=== PATIENT | female | born 1960 | race Caucasian/White ===

== ENCOUNTER 2018-10-01 14:12 | Emergency (ER) | payer OTHER ==
--- NOTE | 2018-10-01 15:21 | ER ---
Nurse's Notes [facility] Name: Inessa Altman Age: 58 yrs Sex: Female : 1960 Arrival Date: 10/01/2018 Time: 14:16 Bed 19 Private MD: Diagnosis: Chronic obstructive pulmonary disease, unspecified Presentation: 10/01 14:50 Presenting complaint: Patient states: seen by on Wednesday. Diagnosed with dm5 pneumonia. didn't take antibiotics because she lost z-pack. Pt states she has been shaky. pt took left over cefindir. Told to take Mucinex DM. Pt feels "speedy" and it can't stop. Pt also states she hasn't taken her psych meds during the day for about a week. Transition of care: patient was not received from another setting of care. Onset of symptoms was September 26, 2018. 14:50 Method Of Arrival: Ambulatory dm5 14:50 Acuity: MINGO 4 dm5 15:50 Risk Assessment: Do you want to hurt yourself or someone else? Patient reports no tw2 desire to harm self or others. Initial Sepsis Screen: Does the patient meet any 2 criteria? No. Patient's initial sepsis screen is negative. Does the patient have a suspected source of infection? No. Patient's initial sepsis screen is negative. Care prior to arrival: None. Historical: - Allergies: 14:53 Antihistamine; dm5 - PMHx: 14:53 Bipolar disorder; Depression; paranoid; Anxiety; dm5 - Immunization history:: Adult Immunizations. - Social history:: Smoking status: Patient uses tobacco products, recently stopped smoking. - Ebola Screening: : Patient denies travel to an Ebola-affected area in the 21 days before illness onset. Screenin:25 Abuse screen: Denies threats or abuse. Nutritional screening: No deficits noted. em Tuberculosis screening: No symptoms or risk factors identified. Fall Risk None identified. Assessment: 15:48 General: Appears in no apparent distress. comfortable, Behavior is calm, cooperative, em lost antibiotic rx, also reports shaking after taking Mucinex . Pain: Denies pain. Neuro: Level of Consciousness is awake, alert, obeys commands, Oriented to person, place, time, situation. Cardiovascular: Denies chest pain, palpitations, Capillary refill < 3 seconds Patient's skin is warm and dry. Respiratory: Airway is patent Respiratory effort is even, unlabored, Respiratory pattern is regular, symmetrical, Breath sounds are clear bilaterally. GI: Abdomen is flat. Derm: Skin is intact, is healthy with good turgor, Skin is pink, warm \\T\\ dry. Musculoskeletal: Capillary refill < 3 seconds, Range of motion: intact in all extremities. 15:50 Reassessment: I agree with above assessment by GABBY Vasquez. tw2 Vital Signs: 14:53 BP 142 / 95; Pulse 114; Resp 20; Temp 97.4; Pulse Ox 95% on R/A; Weight 61.69 kg (R); dm5 Height 5 ft. 5 in. (165.10 cm); Pain 0/10; 15:25 BP 124 / 96; Pulse 105; Resp 20; Pulse Ox 95% on R/A; em 14:53 Body Mass Index 22.63 (61.69 kg, 165.10 cm) dm5 ED Course: 14:16 Patient arrived in ED. mr 14:52 Triage completed. dm5 14:55 Arm band placed on left wrist. Patient placed in an exam room. dm5 14:59 Carolyn Hightower FNP-C is PHCP. snw 14:59 Sabino Silverio MD is Attending Physician. snw 15:20 Pedro Posey LVN is Primary Nurse. em 15:25 Patient has correct armband on for positive identification. Pulse ox on. NIBP on. em 15:48 No provider procedures requiring assistance completed. Patient did not have IV access em during this emergency room visit. Administered Medications: 15:39 Drug: Zithromax 500 mg Route: PO; em 15:50 Follow up: Response: Medication administered at discharge. em Outcome: 15:20 Discharge ordered by . snw 15:51 Patient left the ED. em 15:51 Discharged to home ambulatory. tw2 15:51 Condition: stable 15:51 Discharge instructions given to patient, Instructed on discharge instructions, follow up and referral plans. medication usage, Demonstrated understanding of instructions, follow-up care, medications, Prescriptions given X 1. Signatures: Marie Ambrose RN RN dm5 Carolyn Hightower FNP-C OTR TANKER TRUCK DRIVER-Csnw Traci Patel mr Pedro Posey LVN LVN em Castro, Beth, RN RN tw2 Corrections: (The following items were deleted from the chart) : 16:00 Reassessment: I agree with above assessment by GABBY Vasquez tw2 tw2
--- NOTE | 2018-10-01 15:22 | EDPHYS ---
Physician Documentation [facility] Name: Inessa Altman Age: 58 yrs Sex: Female : 1960 Arrival Date: 10/01/2018 Time: 14:16 Bed 19 Private MD: ED Physician Sabino Silverio HPI: 10/01 15:42 This 58 yrs old Female presents to ER via Ambulatory with complaints of snw Medication Reaction. 15:42 The patient presents with shakiness, restlessness. Onset: The symptoms/episode snw began/occurred suddenly, post taking Mucinex D. Associated signs and symptoms: Pertinent positives: light headed. Possible causes: Decongestants. At home the patient or guardian has treated the symptoms with nebulizer treatment. Severity of symptoms: At their worst the symptoms were moderate in the emergency department the symptoms are unchanged. The patient has experienced similar episodes in the past. The patient has been recently seen by a physician: the patient's primary care provider, Dr. Joon Quezada, N[facility]. Historical: - Allergies: 14:53 Antihistamine; dm5 - PMHx: 14:53 Bipolar disorder; Depression; paranoid; Anxiety; dm5 - Immunization history:: Adult Immunizations. - Social history:: Smoking status: Patient uses tobacco products, recently stopped smoking. - Ebola Screening: : Patient denies travel to an Ebola-affected area in the 21 days before illness onset. ROS: 15:40 Constitutional: Negative for fever, chills, and weight loss, Eyes: Negative for injury, snw pain, redness, and discharge, ENT: Negative for injury, pain, and discharge, Neck: Negative for injury, pain, and swelling, Cardiovascular: Negative for chest pain, palpitations, and edema, Respiratory: Negative for shortness of breath, wheezing, and pleuritic chest pain, + cough Abdomen/GI: Negative for abdominal pain, nausea, vomiting, diarrhea, and constipation, Back: Negative for injury and pain, : Negative for injury, bleeding, discharge, and swelling, MS/Extremity: Negative for injury and deformity, Skin: Negative for injury, rash, and discoloration, Neuro: Negative for headache, weakness, numbness, tingling, and seizure. 15:40 Psych: Positive for anxiety, feel like I'm on speed. Have not smoked cigarette since Wednesday. Pt with repeat appt with PCP (Joon Quezada NP) on Wednesday. Pt states she took Mucinex D and thinks she is having a reaction to that. Pt did not take Antibiotics prescribed because she lost the rx. Exam: 15:14 Constitutional: This is a well developed, well nourished patient who is awake, alert, snw and in no acute distress. Head/Face: Normocephalic, atraumatic. Eyes: Pupils equal round and reactive to light, extra-ocular motions intact. Lids and lashes normal. Conjunctiva and sclera are non-icteric and not injected. Cornea within normal limits. Periorbital areas with no swelling, redness, or edema. ENT: Nares patent. No nasal discharge, no septal abnormalities noted. Tympanic membranes are normal and external auditory canals are clear. Oropharynx with no redness, swelling, or masses, exudates, or evidence of obstruction, uvula midline. Mucous membranes moist. Neck: Trachea midline, no thyromegaly or masses palpated, and no cervical lymphadenopathy. Supple, full range of motion without nuchal rigidity, or vertebral point tenderness. No Meningismus. Chest/axilla: Normal chest wall appearance and motion. Nontender with no deformity. No lesions are appreciated. Cardiovascular: Regular rate and rhythm with a normal S1 and S2. No gallops, murmurs, or rubs. Normal PMI, no JVD. No pulse deficits. Respiratory: Lungs have equal breath sounds bilaterally, wheezes to auscultation and percussion. No rales, rhonchi noted. No increased work of breathing, no retractions or nasal flaring. Abdomen/GI: Soft, non-tender, with normal bowel sounds. No distension or tympany. No guarding or rebound. No evidence of tenderness throughout. Back: No spinal tenderness. No costovertebral tenderness. Full range of motion. Skin: Warm, dry with normal turgor. Normal color with no rashes, no lesions, and no evidence of cellulitis. MS/ Extremity: Pulses equal, no cyanosis. Neurovascular intact. Full, normal range of motion. Neuro: Awake and alert, GCS 15, oriented to person, place, time, and situation. Cranial nerves II-XII grossly intact. Motor strength 5/5 in all extremities. Sensory grossly intact. Cerebellar exam normal. Normal gait. 15:14 Psych: Behavior/mood is anxious, Affect is animated, Oriented to person, place, time. Vital Signs: 14:53 BP 142 / 95; Pulse 114; Resp 20; Temp 97.4; Pulse Ox 95% on R/A; Weight 61.69 kg (R); dm5 Height 5 ft. 5 in. (165.10 cm); Pain 0/10; 15:25 BP 124 / 96; Pulse 105; Resp 20; Pulse Ox 95% on R/A; em 14:53 Body Mass Index 22.63 (61.69 kg, 165.10 cm) dm5 MDM: 15:00 Patient medically screened. snw 15:21 Data reviewed: vital signs, nurses notes. Data interpreted: Pulse oximetry: on room air snw is 95 %. Interpretation: acceptable. Counseling: I had a detailed discussion with the patient and/or guardian regarding: the historical points, exam findings, and any diagnostic results supporting the discharge/admit diagnosis, the presence of at least one elevated blood pressure reading (>120/80) during this emergency department visit, the need for outpatient follow up, for definitive care, to return to the emergency department if symptoms worsen or persist or if there are any questions or concerns that arise at home. Response to treatment: pt less anxious and states she will never again take Mucinex.. Administered Medications: 15:39 Drug: Zithromax 500 mg Route: PO; em 15:50 Follow up: Response: Medication administered at discharge. em Disposition: 16:10 Co-signature as Attending Physician, Sabino Silverio MD. rn Disposition: 10/01/18 15:20 Discharged to Home. Impression: Chronic obstructive pulmonary disease, unspecified. - Condition is Stable. - Discharge Instructions: Chronic Bronchitis, Chronic Obstructive Pulmonary Disease, How to Use an Inhaler. - Prescriptions for Zithromax 500 mg Oral Tablet - take 1 tablet by ORAL route once daily for 5 days; 5 tablet. - Medication Reconciliation Form, Thank You Letter, Antibiotic Education, Prescription Opioid Use form. - Follow up: Private Physician; When: 2 - 3 days; Reason: Recheck today's complaints, Continuance of care, Re-evaluation by your physician. Follow up: Emergency Department; When: As needed; Reason: Worsening of condition. Signatures: Marie Ambrose RN RN dm5 Carolyn Hightower FNP-C CHIEF ENGINEER RESEARCH-Csnw Pedro Posey, ROTARY PLANER SET UP OPERATOR ROTARY PLANER SET UP OPERATOR em Sabino Silverio MD MD rn Wise, Tara, RN RN tw2 Corrections: (The following items were deleted from the chart) 15:51 15:20 10/01/2018 15:20 Discharged to Home. Impression: Chronic obstructive pulmonary em disease, unspecified. Condition is Stable. Forms are Medication Reconciliation Form, Thank You Letter, Antibiotic Education, Prescription Opioid Use. Follow up: Private Physician; When: 2 - 3 days; Reason: Recheck today's complaints, Continuance of care, Re-evaluation by your physician. Follow up: Emergency Department; When: As needed; Reason: Worsening of condition. snw
[2018-10-01] MEDS ORDERED: AZITHROMYCIN 250 MG TAB ONE (15:45)
== END 2018-10-01 15:51 | disposition home or self-care (01) ==
LOC: ER 14:12
DX: J44.9 Chronic obstructive pulmonary disease, unspecified (principal); F32.9 Major depressive disorder, single episode, unspecified; F31.9 Bipolar disorder, unspecified; F41.9 Anxiety disorder, unspecified; Z88.8 Allergy status to other drugs, medicaments and biological substances; Z87.891 Personal history of nicotine dependence
CPT/HCPCS: 99283

== ENCOUNTER 2020-03-27 20:06 | Emergency (ER) | payer OTHER ==
[2020-03-27 21:10] LABS: Hematocrit 40.7 % (36.0-45.0); Lymphocytes % 28.8 % (15.3-44.8); MPV 8.6 fL (7.6-11.3); RBC Red Blood Cell Count 4.48 M/uL (3.86-4.86)
--- NOTE | 2020-03-27 21:13 | RAD REPORT ---
EXAM DESCRIPTION: RAD - Chest Single View - 03/27/2020 9:00 pm CLINICAL HISTORY: CHEST PAIN Chest pain. COMPARISON: Chest Pa And Lat (2 Views) dated 05/01/2019; Chest Pa And Lat (2 Views) dated 10/04/2018; Chest Pa And Lat (2 Views) dated 06/24/2018; CHEST PA AND LAT 2 VIEW dated 11/28/2014 FINDINGS: Portable technique limits examination quality. The lungs are grossly clear. The heart is normal in size. No displaced fractures. IMPRESSION: No acute intrathoracic process suspected.
[2020-03-27 21:28] LABS: ALT/SGPT 18 U/L (12-78); AST/SGOT 14 U/L (15-37); Alkaline Phosphatase 119 U/L (45-117); BUN Blood Urea Nitrogen 12 mg/dL (7-18); Bicarbonate 27 mmol/L (21-32); Bilirubin Direct < 0.1 mg/dL (0-0.2); Bilirubin Total 0.3 mg/dL (0.2-1.0); Glucose Level 92 mg/dL (74-106); Magnesium 2.6 mg/dL (1.8-2.4); NT PRO-BNP 17 pg/mL (<125); Potassium 3.6 mmol/L (3.5-5.1); Protein, Total 6.9 g/dL (6.4-8.2); Sodium Level 139 mmol/L (136-145); Troponin (Emerg Dept Use Only) < 0.02 ng/mL (0.0-0.045)
--- NOTE | 2020-03-27 23:34 | ER ---
Nurse's Notes [facility] Name: Inessa Altman Age: 59 yrs Sex: Female : 1960 Arrival Date: 03/27/2020 Time: 20:09 Bed 7 Private MD: Diagnosis: Pneumonia;Chest Pain Presentation: 03/27 20:12 Chief complaint: Patient states: R upper back pain x 4 days with L sided chest ca1 soreness. Hx of pleurisy. Coronavirus screen: Client denies travel out of the [place] in the last 14 days. At this time, the client does not indicate any symptoms associated with coronavirus-19. Ebola Screen: Patient negative for fever greater than or equal to 101.5 degrees Fahrenheit, and additional compatible Ebola Virus Disease symptoms Patient denies exposure to infectious person. Patient denies travel to an Ebola-affected area in the 21 days before illness onset. No symptoms or risks identified at this time. Initial Sepsis Screen: Does the patient meet any 2 criteria? No. Patient's initial sepsis screen is negative. Does the patient have a suspected source of infection? No. Patient's initial sepsis screen is negative. Risk Assessment: Do you want to hurt yourself or someone else? Patient reports no desire to harm self or others. Onset of symptoms was March 27, 2020. 20:12 Method Of Arrival: Ambulatory ca1 20:12 Acuity: MINGO 3 ca1 Triage Assessment: 20:59 General: Appears in no apparent distress. comfortable, Behavior is cooperative. Pain: mt2 Complains of pain in back Pain currently is 5 out of 10 on a pain scale. Quality of pain is described as aching. EENT: No deficits noted. Neuro: No deficits noted. Cardiovascular: No deficits noted. Respiratory: No deficits noted. GI: No deficits noted. : No deficits noted. Derm: No deficits noted. Musculoskeletal: Reports pain in back. Historical: - Allergies: 20:26 Antihistamine; ca1 - Home Meds: 20:29 carbamazepine 200 mg Oral tab [Active]; bupropion HCl 300 mg Oral Tb24 [Active]; ca1 risperidone oral oral [Active]; albuterol sulfate Oral [Active]; Symbicort inhalation inhalation [Active]; Aspirin Oral [Active]; - PMHx: 20:26 Anxiety; Bipolar disorder; Depression; paranoid; COPD; Emphysema; Osteoporosis; ca1 - Immunization history:: Adult Immunizations up to date. - Social history:: Smoking status: Patient reports the use of cigarette tobacco products, smokes one pack cigarettes per day. Screenin:59 Abuse screen: Denies threats or abuse. Nutritional screening: No deficits noted. mt2 Tuberculosis screening: No symptoms or risk factors identified. Fall Risk None identified. Assessment: 21:18 Reassessment: Patient and/or family updated on plan of care and expected duration. Pain mt2 level reassessed. Patient is alert, oriented x 3, equal unlabored respirations, skin warm/dry/pink. General: Appears comfortable, Behavior is cooperative. Pain: Complains of pain in back Pain currently is 5 out of 10 on a pain scale. 22:02 Reassessment: Patient and/or family updated on plan of care and expected duration. Pain mt2 level reassessed. Patient is alert, oriented x 3, equal unlabored respirations, skin warm/dry/pink. General: Appears comfortable, Behavior is cooperative. Pain: Denies pain. 22:40 Reassessment: Patient and/or family updated on plan of care and expected duration. Pain mt2 level reassessed. Patient is alert, oriented x 3, equal unlabored respirations, skin warm/dry/pink. Reassessment: PT IS REFUSING CTTA. STATES "IM SCARED OF THE DYE. I CANT DO IT". PROVIDER NOTIFIED. General: Appears uncomfortable, Behavior is anxious. Pain: Denies pain. 23:33 Reassessment: Patient and/or family updated on plan of care and expected duration. Pain mt2 level reassessed. Patient is alert, oriented x 3, equal unlabored respirations, skin warm/dry/pink. General: Appears comfortable, Behavior is cooperative. Pain: Denies pain. Vital Signs: 20:12 BP 130 / 103; Pulse 94; Resp 19 S; Temp 98.5(TE); Pulse Ox 98% on R/A; Weight 65.77 kg ca1 (R); Height 5 ft. 3 in. (160.02 cm) (R); 21:18 BP 125 / 83; Pulse 83; Resp 16; Pulse Ox 97% on R/A; Pain 5/10; mt2 22:02 BP 129 / 74; Pulse 81; Resp 16; Pulse Ox 96% on R/A; Pain 0/10; mt2 22:39 BP 132 / 80; Pulse 83; Resp 16; Pulse Ox 97% ; Pain 0/10; mt2 23:33 BP 129 / 85; Pulse 80; Resp 16; Pulse Ox 98% ; Pain 0/10; mt2 20:12 Body Mass Index 25.69 (65.77 kg, 160.02 cm) ca1 ED Course: 20:09 Patient arrived in ED. bp1 20:10 Lina Gonzalez RN is Primary Nurse. ca1 20:25 Triage completed. ca1 20:26 Arm band placed on right wrist. ca1 20:27 Herminio Ferrell PA is PHCP. [facility] 20:27 Josep Griffin MD is Attending Physician. [facility] 20:59 Patient has correct armband on for positive identification. Bed in low position. Call mt2 light in reach. Side rails up X 1. nurse monitoring on. Pulse ox on. NIBP on. 21:00 XRAY Chest (1 view) In Process Unspecified. EDMS 21:00 Initial lab(s) drawn, by me, sent to lab. Inserted saline lock: 18 gauge in right mt2 antecubital area, using aseptic technique. Blood collected. 23:09 CT Chest For PE Angio In Process Unspecified. EDMS 23:38 LFT's Sent. mt2 23:38 No provider procedures requiring assistance completed. IV discontinued, intact, mt2 bleeding controlled, No redness/swelling at site. Pressure dressing applied. Administered Medications: No medications were administered Outcome: 23:33 Discharge ordered by . [facility] 23:38 Discharged to home ambulatory. mt2 23:38 Condition: good 23:38 Discharge instructions given to patient, Instructed on discharge instructions, follow up and referral plans. Demonstrated understanding of instructions, follow-up care. 23:44 Patient left the ED. mt2 Signatures: Dispatcher [employer] EDMS Herminio Ferrell PA PA Lina Ventura RN RN ca1 Ebonie Jacobson bp1 Abi Mcdonald RN RN mt2
--- NOTE | 2020-03-27 23:34 | EDPHYS ---
Physician Documentation [facility] Name: Inessa Altman Age: 59 yrs Sex: Female : 1960 Arrival Date: 03/27/2020 Time: 20:09 Bed 7 Private MD: ED Physician Josep Griffin HPI: 03/27 21:03 This 59 yrs old Female presents to ER via Ambulatory with complaints of Chest jmm Sorenes. 21:03 Onset: gradually, 3 day(s) ago. The pain does not radiate. Associated signs and jmm symptoms: Pertinent positives:. The chest pain is described as aching. Modifying factors: The symptoms are alleviated by nothing. the symptoms are aggravated by nothing. This is a 59 year old female with a history of COPD that presents to the ED with complaints of shortness of breath and left sided chest pain beginning approx 3 days ago. Patient states pain began after moving heavy furniture around. Pain is worse in the left upper back and the left axillary region. Patient states having a normal stress test 2 months prior. . Historical: - Allergies: 20:26 Antihistamine; ca1 - Home Meds: 20:29 carbamazepine 200 mg Oral tab [Active]; bupropion HCl 300 mg Oral Tb24 [Active]; ca1 risperidone oral oral [Active]; albuterol sulfate Oral [Active]; Symbicort inhalation inhalation [Active]; Aspirin Oral [Active]; - PMHx: 20:26 Anxiety; Bipolar disorder; Depression; paranoid; COPD; Emphysema; Osteoporosis; ca1 - Immunization history:: Adult Immunizations up to date. - Social history:: Smoking status: Patient reports the use of cigarette tobacco products, smokes one pack cigarettes per day. ROS: 21:03 Constitutional: Negative for fever, chills, and weight loss. jmm 21:03 Cardiovascular: Positive for chest pain. 21:03 Respiratory: Positive for shortness of breath. 21:03 All other systems are negative. Exam: 21:03 Constitutional: This is a well developed, well nourished patient who is awake, alert, jmm and in no acute distress. Head/Face: atraumatic. Eyes: EOMI, no conjunctival erythema appreciated ENT: Moist Mucus Membranes Neck: Trachea midline, Supple 21:03 Cardiovascular: Regular rate and rhythm. No edema appreciated Respiratory: Normal respirations, no respiratory distress appreciated Abdomen/GI: Non distended, soft Skin: General appearance color normal MS/ Extremity: Moves all extremities, no obvious deformities appreciated, no edema noted to the lower extremities Neuro: Awake and alert, normal gait Psych: Behavior is normal, Mood is normal, Patient is cooperative and pleasant 21:03 Chest/axilla: 21:03 Back: pain, that is very mild, ROM is normal, CVA tenderness, that is moderate. Vital Signs: 20:12 BP 130 / 103; Pulse 94; Resp 19 S; Temp 98.5(TE); Pulse Ox 98% on R/A; Weight 65.77 kg ca1 (R); Height 5 ft. 3 in. (160.02 cm) (R); 21:18 BP 125 / 83; Pulse 83; Resp 16; Pulse Ox 97% on R/A; Pain 5/10; mt2 22:02 BP 129 / 74; Pulse 81; Resp 16; Pulse Ox 96% on R/A; Pain 0/10; mt2 22:39 BP 132 / 80; Pulse 83; Resp 16; Pulse Ox 97% ; Pain 0/10; mt2 23:33 BP 129 / 85; Pulse 80; Resp 16; Pulse Ox 98% ; Pain 0/10; mt2 20:12 Body Mass Index 25.69 (65.77 kg, 160.02 cm) ca1 MDM: 20:48 Patient medically screened. [facility] 22:24 Data reviewed: vital signs, nurses notes. [facility] 23:31 Data reviewed: lab test result(s), radiologic studies, CT scan, plain films. ED course: [facility] Labs unremarkable. Patient is alert and non toxic in appearance in the ED. CT reveals right lower lung infiltrate. Will treat with oral abx. Patient is advised to follow up with pcp for reevaluation and otherwise given strict return precautions. Patient understood and agrees with the plan of care. . 03/27 20:28 Order name: Basic Metabolic Panel [facility] 03/27 20:28 Order name: CBC with Diff; Complete Time: 21:20 [facility] 03/27 20:28 Order name: LFT's [facility] 03/27 20:28 Order name: Magnesium; Complete Time: 21:38 [facility] 03/27 20:28 Order name: NT PRO-BNP; Complete Time: 21:38 [facility] 03/27 20:28 Order name: PT-INR; Complete Time: 21:38 [facility] 03/27 20:28 Order name: Troponin (emerg Dept Use Only); Complete Time: 21:38 [facility] 03/27 20:28 Order name: XRAY Chest (1 view); Complete Time: 21:20 [facility] 03/27 20:28 Order name: EKG; Complete Time: 20:28 [facility] 03/27 20:28 Order name: Cardiac monitoring; Complete Time: 20:55 [facility] 03/27 20:28 Order name: Basic Metabolic Panel; Complete Time: 21:38 [facility] 03/27 20:28 Order name: Liver (Hepatic) Function; Complete Time: 21:38 [facility] 03/27 21:04 Order name: Urine Dipstick--Ancillary (enter results) 03/27 22:25 Order name: CT Chest For PE Angio [facility] 03/27 20:28 Order name: EKG - Nurse/Tech; Complete Time: 20:55 [facility] 03/27 20:28 Order name: IV Saline Lock; Complete Time: 20:59 [facility] 03/27 20:28 Order name: Labs collected and sent; Complete Time: 21:20 [facility] 03/27 20:28 Order name: O2 Per Protocol; Complete Time: 21:20 [facility] 03/27 20:28 Order name: O2 Sat Monitoring; Complete Time: 21:20 [facility] Administered Medications: No medications were administered Disposition: 03/28 05:54 Co-signature as Attending Physician, Josep Griffin MD. [email or web address] Disposition: 03/27/20 23:33 Discharged to Home. Impression: Pneumonia, Chest Pain. - Condition is Stable. - Discharge Instructions: Nonspecific Chest Pain, Community-Acquired Pneumonia, Adult. - Prescriptions for Zithromax Z- Win 250 mg Oral Tablet - take 1 tablet by ORAL route as directed for 5 days Day 1 - take two (2) tablets one time. Day 2, 3, 4 , 5 take one (1) tablet once daily.; 6 tablet. Medrol (Win) 4 mg Oral Tablets, Dose Pack - take 1 tablet by ORAL route as directed - follow package instructions; 1 packet. - Medication Reconciliation Form, Thank You Letter, Antibiotic Education, Prescription Opioid Use form. - Follow up: Private Physician; When: 2 - 3 days; Reason: Recheck today's complaints, Continuance of care, Re-evaluation by your physician. Signatures: Dispatcher [employer] EDHerminio Vega PA PA jmm Acob, Cheryl RN RN [facility] Josep Griffin MD MD mh7 Abi Mcdonald RN RN mt2 Corrections: (The following items were deleted from the chart) 03/27 23:44 23:33 03/27/2020 23:33 Discharged to Home. Impression: Pneumonia; Chest Pain. Condition mt2 is Stable. Forms are Medication Reconciliation Form, Thank You Letter, Antibiotic Education, Prescription Opioid Use. Follow up: Private Physician; When: 2 - 3 days; Reason: Recheck today's complaints, Continuance of care, Re-evaluation by your physician. jay
[2020-03-27 23:56] VITALS: TEMP 98.5
[2020-03-28 00:07] VITALS: BP 129/85; O2SAT 98
[2020-03-28 00:14] LABS: Urine Blood NEGATIVE (NEG); Urine Glucose NEGATIVE (NEG); Urine Protein NEGATIVE (NEG); Urine pH 5.5 (5.0-7.0)
--- NOTE | 2020-03-28 05:55 | EKG ---
Test Date: 2020-03-27 Test Time: 20:50:34 Real Estate Services Coordinator: JENNIFER MEASUREMENT RESULTS: Intervals: Rate: 76 [place]: 154 QRSD: 88 QT: 362 QTc: 407 [place]: P: 66 [place]: 154 QRS: 39 T: 53 INTERPRETIVE STATEMENTS: Normal sinus rhythm RSR' or QR pattern in V1 suggests right ventricular conduction delay Borderline ECG No previous ECG available for comparison Electronically Signed On 03-28-20 05:55:14 CDT by Jaden Thurston
--- NOTE | 2020-03-28 15:38 | RAD REPORT ---
EXAM DESCRIPTION: CT - Chest For Pe Angio - 03/28/2020 6:47 am CLINICAL HISTORY: 59 years Female chest pain, shortness of breath COMPARISON: None TECHNIQUE: Images were obtained in axial, sagittal, and coronal planes. Intravenous contrast was adm inistered. 3-D MIP imaging was performed. This exam was performed according to our departmental dose-optimization program which includes use of Automated Exposure Control, adjustment of the mA and/or kV according to patient size and/or use o f iterative reconstruction technique. FINDINGS: No filling defects pulmonary arteries bilaterally. No aortic dissection or dilatation. No adenopathy. No pericardial or pleural effusions bilaterally. No pneumothorax. Mild centrilobular emphysema. Airspace attenuation peripheral right lower lobe. No a bnormal airspace attenuation on left. No lung parenchymal nodules seen. No acute osseous abnormality. No abnormality upper abdomen. IMPRESSION: No evidence for pulmonary embolus. No aortic dissection or dilatation. Right lower lobe infiltrate and atelectatic change. Mild COPD. Electronically signed by: Shavonne Martin MD 03/27/2020 11:22 PM CDT Due to temporary technical issues with the PACS/Fluency reporting system, reports are being signed by the in house radiologist without Review as a courtesy to ensure prompt reporting. The interpreting radiologist is fully responsible fo r the content of the report.
== END 2020-03-27 23:44 | disposition home or self-care (01) ==
LOC: ER 20:06
DX: J18.9 Pneumonia, unspecified organism (principal); F31.9 Bipolar disorder, unspecified; J44.9 Chronic obstructive pulmonary disease, unspecified; F17.210 Nicotine dependence, cigarettes, uncomplicated; Z79.82 Long term (current) use of aspirin; Z88.8 Allergy status to other drugs, medicaments and biological substances
CPT/HCPCS: 93005; 85025; 80048; 36415; 83735; 85610; 80076; 81003; 84484; 83880; 71275; 71045; 99284; Q9967

== ENCOUNTER 2021-12-11 19:56 | Emergency (ER) | payer OTHER ==
--- NOTE | 2021-12-11 20:34 | ER ---
Nurse's Notes [facility] Name: Inessa Altman Age: 61 yrs Sex: Female : 1960 Arrival Date: 12/11/2021 Time: 19:58 Bed Waiting Private MD: Diagnosis: ED Course: 12/11 19:58 Patient arrived in ED. sun Administered Medications: No medications were administered Outcome: 20:34 Patient left the ED. ld1 Signatures: Sondra Victoria RN RN ld1 Kyleigh Blum
== END 2021-12-11 20:34 | disposition left against medical advice (07) ==
LOC: ER 19:56
DX: Z02.9 Encounter for administrative examinations, unspecified (principal)

== ENCOUNTER 2022-06-30 14:01 | Emergency (ER) | payer OTHER ==
[2022-06-30 14:46] LABS: Hematocrit 45.2 % (36.0-45.0); MCV 91.3 fL (80-100); RBC Red Blood Cell Count 4.95 M/uL (3.86-4.86)
[2022-06-30 15:04] LABS: Magnesium 2.6 mg/dL (1.6-2.4); Troponin High Sensitivity 3.6 pg/mL (<58.9)
[2022-06-30] MEDS ORDERED: ASPIRIN 81 MG CHEWABLE TABLET ONE (15:30)
--- NOTE | 2022-06-30 16:21 | RAD REPORT ---
EXAM DESCRIPTION: RAD - Chest Single View - 06/30/2022 4:15 pm CLINICAL HISTORY: CHEST PAIN Chest pain. COMPARISON: Chest Single View dated 03/27/2020; Chest Pa And Lat (2 Views) dated 05/01/2019; Chest Pa And Lat (2 Views) dated 10/04/2018; Chest Pa And Lat (2 Views) dated 06/24/2018 FINDINGS: Portable technique limits examination quality. The lungs are grossly clear. The heart is normal in size. No displaced fractures. IMPRESSION: No acute intrathoracic process suspected.
--- NOTE | 2022-06-30 16:42 | EDPHYS ---
Physician Documentation [facility] Name: Inessa Altman Age: 61 yrs Sex: Female : 1960 Arrival Date: 06/30/2022 Time: 14:04 Bed 19 Private MD: ED Physician Maximino Gould HPI: 06/30 14:27 This 61 yrs old Female presents to ER via Unassigned with complaints of Chest ms3 Tightness, Congestion. 14:27 The patient or guardian reports chest pain that is located primarily in the chest ms3 diffusely. Onset: 8 AM. The pain does not radiate. Associated signs and symptoms: Pertinent positives: cough, Pertinent negatives: nausea, vomiting. The chest pain is described as Tight. Duration: The patient or guardian reports a single episode. Modifying factors: The symptoms are alleviated by nothing. the symptoms are aggravated by nothing. Severity of pain: At its worst the pain was mild in the emergency department the pain has resolved. Historical: - Allergies: 14:28 Antihistamine; jh5 - PMHx: 14:28 Anxiety; paranoid; Emphysema; Bipolar disorder; COPD; Depression; Osteoporosis; jh5 - Immunization history:: Adult Immunizations up to date. - Social history:: Smoking status: Patient reports the use of cigarette tobacco products, smokes one pack cigarettes per day. ROS: 14:27 Constitutional: Negative for fever, and chills. Neck: Negative for injury, pain, and ms3 swelling. 14:27 Abdomen/GI: Negative for abdominal pain, nausea, vomiting, diarrhea, and constipation, MS/Extremity: Negative for injury and deformity, Skin: Negative for injury, rash, and discoloration. 14:27 Cardiovascular: Positive for chest pain. 14:27 Respiratory: Positive for cough. 14:27 All other systems are negative. Exam: 14:27 Constitutional: This is a well developed, well nourished patient who is awake, alert, ms3 and in no acute distress. Head/Face: Normocephalic, atraumatic. Neck: Trachea midline, no cervical lymphadenopathy. Supple, full range of motion without nuchal rigidity, or vertebral point tenderness. No Meningismus. Chest/axilla: Normal chest wall appearance and motion. Nontender with no deformity. Cardiovascular: Regular rate and rhythm with a normal S1 and S2. No gallops, murmurs, or rubs. Normal PMI, no JVD. No pulse deficits. Respiratory: Lungs have equal breath sounds bilaterally, clear to auscultation and percussion. No rales, rhonchi or wheezes noted. No increased work of breathing, no retractions or nasal flaring. Abdomen/GI: Soft, non-tender, with normal bowel sounds. No distension or tympany. No guarding or rebound. No evidence of tenderness throughout. Skin: Warm, dry with normal turgor. Normal color with no rashes, no lesions, and no evidence of cellulitis. MS/ Extremity: Pulses equal, no cyanosis. Neurovascular intact. Full, normal range of motion. 15:58 ECG was reviewed by the Attending Physician. ms3 Vital Signs: 14:25 BP 142 / 86; Pulse 89; Resp 16; Temp 98.6; Pulse Ox 100% ; Weight 68.04 kg; Height 5 5 ft. 4 in. (162.56 cm); Pain 2/10; 17:30 BP 132 / 78; Pulse 81; Resp 18; Temp 98.0; Pulse Ox 99% on R/A; ph 14:25 Body Mass Index 25.75 (68.04 kg, 162.56 cm) 5 MDM: 14:20 Patient medically screened. ms3 14:27 Differential diagnosis: abnormal EKG, chest wall pain, pneumonia, pneumothorax, Upper ms3 respiratory infection. The patient was given aspirin in the Emergency Department. 16:40 HEART Score: History: Slightly Suspicious (0), ECG: Normal (0), Age: > 45 and < 65 ms3 years (1), Risk Factors: 1 or 2 risk factors (1), [Active Smoker] Troponin: < or = 1 x Normal Limit (0), Total Score = 2. Data reviewed: vital signs, nurses notes, lab test result(s), EKG, radiologic studies, and as a result, I will discharge patient. Counseling: I had a detailed discussion with the patient and/or guardian regarding: the historical points, exam findings, and any diagnostic results supporting the discharge/admit diagnosis, lab results, radiology results, the need for outpatient follow up, to return to the emergency department if symptoms worsen or persist or if there are any questions or concerns that arise at home. ED course: Discussed labs, EKG, chest x-ray with patient. Patient to follow-up with her primary care physician in 2 to 3 days. Patient understands agrees with plan. All questions were answered. Return precautions discussed include shortness of breath, nausea, vomiting, worsening symptoms, or any other concerns. 06/30 14:20 Order name: Basic Metabolic Panel; Complete Time: 15:33 ms3 06/30 14:20 Order name: CBC with Diff; Complete Time: 15:33 ms3 06/30 14:20 Order name: Magnesium; Complete Time: 15:33 ms3 06/30 14:20 Order name: Troponin HS; Complete Time: 15:33 ms3 06/30 14:20 Order name: XRAY Chest (1 view); Complete Time: 16:31 ms3 06/30 14:20 Order name: Cardiac monitoring; Complete Time: 14:42 ms3 06/30 14:20 Order name: EKG - Nurse/Tech; Complete Time: 14:41 ms3 06/30 14:20 Order name: IV Saline Lock; Complete Time: 14:41 ms3 06/30 14:20 Order name: Labs collected and sent; Complete Time: 14:41 ms3 06/30 14:20 Order name: O2 Per Protocol; Complete Time: 14:42 ms3 06/30 14:20 Order name: O2 Sat Monitoring; Complete Time: 14:42 ms3 EC:58 Rate is 80 beats/min. Rhythm is regular. QRS [place] is Normal. ME interval is normal. QRS ms3 interval is normal. Clinical impression: Normal ECG. Reviewed by me. Administered Medications: 15:30 Drug: Aspirin Chewable Tablet 324 mg Route: PO; ld1 17:00 Follow up: Response: No adverse reaction ph Disposition Summary: 06/30/22 16:42 Discharge Ordered Location: Home ms3 Condition: Stable ms3 Diagnosis - Cough ms3 - Chest pain, unspecified ms3 - Elevated blood-pressure reading, without diagnosis of hypertension ms3 Followup: ms3 - With: Fernandez Dang DO - When: 2 - 3 days - Reason: Recheck today's complaints Discharge Instructions: - Discharge Summary Sheet ms3 - Nonspecific Chest Pain, Adult ms3 - Cough, Adult ms3 Forms: - Medication Reconciliation Form ms3 - Thank You Letter ms3 - Antibiotic Education ms3 - Prescription Opioid Use ms3 Prescriptions: - benzonatate 200 mg Oral capsule - take 1 capsule by ORAL route 3 times per day; 20 capsule; Refills: 0, Product ms3 Selection Permitted Signatures: Dispatcher [employer] EDMaximino Gomez, DO DO ms3 Sondra Victoria RN RN ld1 Yazmin Walker RN RN jh5 Ariadna Lai RN ph
--- NOTE | 2022-06-30 16:42 | ER ---
Nurse's Notes [facility] Name: Inessa Altman Age: 61 yrs Sex: Female : 1960 Arrival Date: 06/30/2022 Time: 14:04 Bed 19 Private MD: Diagnosis: Cough;Chest pain, unspecified;Elevated blood-pressure reading, without diagnosis of hypertension Presentation: 06/30 14:25 Chief complaint: Patient states: chest tightness since this morning at 8am, and jh5 congestion for 3 weeks. Coronavirus screen: Vaccine status: Patient reports being unvaccinated. Client denies travel out of the [place] in the last 14 days. Ebola Screen: Patient negative for fever greater than or equal to 101.5 degrees Fahrenheit, and additional compatible Ebola Virus Disease symptoms Patient denies exposure to infectious person. Patient denies travel to an Ebola-affected area in the 21 days before illness onset. Initial Sepsis Screen: Does the patient meet any 2 criteria? No. Patient's initial sepsis screen is negative. Does the patient have a suspected source of infection? No. Patient's initial sepsis screen is negative. Risk Assessment: Do you want to hurt yourself or someone else? Patient reports no desire to harm self or others. 14:25 Method Of Arrival: Ambulatory [facility] 14:25 Acuity: MINGO 3 [facility] 17:30 Onset of symptoms was June 30, 2022. Triage Assessment: 14:28 General: Appears comfortable, Behavior is calm, cooperative, appropriate for age. 5 Pain:. Cardiovascular: Chest pain is described as mild. Historical: - Allergies: 14:28 Antihistamine; 5 - PMHx: 14:28 Anxiety; paranoid; Emphysema; Bipolar disorder; COPD; Depression; Osteoporosis; jh5 - Immunization history:: Adult Immunizations up to date. - Social history:: Smoking status: Patient reports the use of cigarette tobacco products, smokes one pack cigarettes per day. Screenin:30 [facility] ED Fall Risk Assessment (Adult) History of falling in the last 3 months, including since admission No falls in past 3 months (0 pts) Confusion or Disorientation No (0 pts) Intoxicated or Sedated No (0 pts) Impaired Gait No (0 pts) Mobility Assist Device Used No (0 pt) Altered Elimination No (0 pt) Score/Fall Risk Level 0 - 2 = Low Risk. Abuse screen: Denies threats or abuse. Denies injuries from another. Nutritional screening: No deficits noted. Tuberculosis screening: No symptoms or risk factors identified. Fall Risk No fall in past 12 months (0 pts). Assessment: 17:30 General: Appears in no apparent distress. comfortable, Behavior is calm, cooperative, ph appropriate for age, Denies fever. Pain: Complains of pain in chest Pain does not radiate. Pain began gradually. Neuro: Level of Consciousness is awake, alert, obeys commands, Oriented to person, place, time, Appropriate for age. Cardiovascular: Capillary refill < 3 seconds in bilateral fingers Patient's skin is warm and dry. Respiratory: Reports cough that is Airway is patent Respiratory effort is even, unlabored. Derm: Skin is intact, is healthy with good turgor, Skin is pink, warm \T\ dry. Vital Signs: 14:25 BP 142 / 86; Pulse 89; Resp 16; Temp 98.6; Pulse Ox 100% ; Weight 68.04 kg; Height 5 [facility] ft. 4 in. (162.56 cm); Pain 2/10; 17:30 BP 132 / 78; Pulse 81; Resp 18; Temp 98.0; Pulse Ox 99% on R/A; ph 14:25 Body Mass Index 25.75 (68.04 kg, 162.56 cm) [facility] ED Course: 14:04 Patient arrived in ED. as 14:04 Maximino Gould DO is Attending Physician. ms3 14:28 Triage completed. 5 14:28 Arm band placed on left wrist. [facility] 15:47 Ariadna Lai, RN is Primary Nurse. ph 16:16 XRAY Chest (1 view) In Process Unspecified. EDMS 16:42 Fernandez Dang DO is Referral Physician. ms3 17:30 Patient has correct armband on for positive identification. Client placed on continuous ph cardiac and pulse oximetry monitoring. NIBP monitoring applied. 17:30 No provider procedures requiring assistance completed. IV discontinued, intact, ph bleeding controlled, No redness/swelling at site. Pressure dressing applied. Patient maintains SpO2 saturation greater than 95% on room air. Administered Medications: 15:30 Drug: Aspirin Chewable Tablet 324 mg Route: PO; ld1 17:00 Follow up: Response: No adverse reaction ph Medication: 19:30 VIS not applicable for this client. ph Outcome: 16:42 Discharge ordered by . ms3 17:30 Patient left the ED. ss 17:30 Discharged to home ambulatory. ph 17:30 Condition: good 17:30 Discharge instructions given to patient, Instructed on discharge instructions, follow up and referral plans. medication usage, Demonstrated understanding of instructions, follow-up care, medications, Prescriptions given X 1. Signatures: Dispatcher [employer] EDValorie Poole Shelby, ALEX RN Ariadna Lai RN RN Maximino Gould, DO ms3 Sondra Victoria RN RN ld1 Yazmin Walker RN RN jh5
[2022-06-30 17:35] VITALS: BP 142/86; TEMP 98.6; O2SAT 100
--- NOTE | 2022-07-02 08:09 | EKG ---
Test Date: 2022-06-30 Test Time: 14:38:26 Blender Laborer: MEASUREMENT RESULTS: Intervals: Rate: 80 MO: 140 QRSD: 82 QT: 358 QTc: 412 [place]: P: 69 MO: 140 QRS: 38 T: 46 INTERPRETIVE STATEMENTS: Normal sinus rhythm Normal ECG Compared to ECG 03/27/2020 20:50:34 No significant changes Electronically Signed On 07-02-22 08:02:27 INSURANCE CLAIMS PROCESSOR by Jaden Thurston
== END 2022-06-30 17:30 | disposition home or self-care (01) ==
LOC: ER 14:01
DX: R07.89 Other chest pain (principal); R03.0 Elevated blood-pressure reading, without diagnosis of hypertension; R05.9 Cough, unspecified; F17.210 Nicotine dependence, cigarettes, uncomplicated
CPT/HCPCS: 36415; 71045; 80048; 83735; 84484; 85025; 93005; 99284

== ENCOUNTER 2022-10-06 07:51 | Emergency (ER) | payer OTHER ==
--- OUTSIDE RECORDS SUMMARY | 2022-10-06 07:55 | XMS REPORT | Continuity of Care Document ---
:1960 Author Organization [facility] t Address [address] [place] [address] [place] [id number] Care Team Providers Name Role Phone Unavailable Unavailable Unavailable Problems This patient has no known problems. Allergies, Adverse Reactions, Alerts This patient has no known allergies or adverse reactions. Medications This patient has no known medications. Procedures This patient has no known procedures. Encounters Start End Encounter Admission Attending Care Care Encounter Source Date/Time Date/Time Type Type Clinicians Facility Department ID 2022-07-22 2022-07-[address] [facility] SFA [id number] 08:10:39 08:10:39 [id number] F Shashank Results This patient has no known results.
[2022-10-06 08:59] LABS: Specific Gravity 1.005 (1.005-1.030); Urine Bilirubin NEGATIVE (Negative); Urine Blood Negative (Negative); Urine Clarity Clear (Clear); Urine Color Colorless (Yellow); Urine Glucose NEGATIVE (Negative); Urine Protein NEGATIVE (Negative); Urine Urobilinogen Normal (Normal); Urine pH 5.5 (5.0-7.0)
--- NOTE | 2022-10-06 09:37 | RAD REPORT ---
EXAM DESCRIPTION: [facility] Pa And Lat (2 Views)10/06/2022 8:53 am CLINICAL HISTORY: COPD COMPARISON: Chest Single View dated 06/30/2022; Chest Single View dated 03/27/2020; Chest Pa And Lat ( 2 Views) dated 05/01/2019; Chest Pa And Lat (2 Views) dated 10/04/2018 TECHNIQUE: PA and lateral views of the chest. FINDINGS: The lungs are clear. No pneumothorax or effusion. The cardiomediastinal contours are unrem arkable. IMPRESSION: No acute cardiopulmonary process.
--- NOTE | 2022-10-06 10:18 | ER ---
Nurse's Notes [facility] Name: Inessa Altman Age: 62 yrs Sex: Female : 1960 Arrival Date: 10/06/2022 Time: 07:55 Bed 18 Private MD: Diagnosis: Acute bronchitis, unspecified Presentation: 10/06 08:12 Chief complaint: Patient states: dark, malodorous urine and her throat is bleeding. iw Coronavirus screen: At this time, the client does not indicate any symptoms associated with coronavirus-19. Ebola Screen: Patient negative for fever greater than or equal to 101.5 degrees Fahrenheit, and additional compatible Ebola Virus Disease symptoms Patient denies exposure to infectious person. Patient denies travel to an Ebola-affected area in the 21 days before illness onset. No symptoms or risks identified at this time. Initial Sepsis Screen: Does the patient meet any 2 criteria? No. Patient's initial sepsis screen is negative. Does the patient have a suspected source of infection? No. Patient's initial sepsis screen is negative. Risk Assessment: Do you want to hurt yourself or someone else? Patient reports no desire to harm self or others. Onset of symptoms was September 28, 2022. 08:12 Method Of Arrival: Ambulatory iw 08:12 Acuity: MINGO 4 iw Historical: - Allergies: 08:09 Antihistamine; iw - Home Meds: 08:09 aspirin 81 mg Oral tablet,chewable daily [Active]; atorvastatin 40 mg oral tablet every iw evening [Active]; risperidone 1 mg oral tablet daily [Active]; bupropion HCl 300 mg Oral Tablet, Extended Release 24 hr once [Active]; Epitol 200 mg oral tablet 3 times per day [Active]; risperidone 2 mg oral tablet every day at bedtime [Active]; fluticasone propionate 50 mcg/actuation intranasal spray, suspension daily [Active]; - PMHx: 08:09 Anxiety; Bipolar disorder; COPD; Depression; Emphysema; Osteoporosis; paranoid; iw - Immunization history:: Adult Immunizations unknown. - Social history:: Smoking status: unknown. Screenin:06 [facility] ED Fall Risk Assessment (Adult) History of falling in the last 3 months, db including since admission No falls in past 3 months (0 pts) Confusion or Disorientation No (0 pts) Intoxicated or Sedated No (0 pts) Impaired Gait No (0 pts) Mobility Assist Device Used No (0 pt) Altered Elimination No (0 pt) Score/Fall Risk Level 0 - 2 = Low Risk Oriented to surroundings, Maintained a safe environment. Abuse screen: Denies threats or abuse. Denies injuries from another. Nutritional screening: No deficits noted. Tuberculosis screening: No symptoms or risk factors identified. Assessment: 09:06 Reassessment: Patient appears in no apparent distress at this time. Patient and/or db family updated on plan of care and expected duration. Pain level reassessed. Patient is alert, oriented x 3, equal unlabored respirations, skin warm/dry/pink. urinary symptoms and blister in throat. General: Appears in no apparent distress. comfortable, Behavior is calm, cooperative. Pain: Complains of pain in throat. Neuro: Level of Consciousness is awake, alert, obeys commands, Oriented to person, place, time, situation. 10:55 Reassessment: Patient appears in no apparent distress at this time. Patient and/or db family updated on plan of care and expected duration. Pain level reassessed. Patient is alert, oriented x 3, equal unlabored respirations, skin warm/dry/pink. General: Appears in no apparent distress. comfortable, Behavior is calm, cooperative. Vital Signs: 08:09 BP 124 / 78; Pulse 79; Resp 16; Pulse Ox 98% on R/A; iw 10:55 BP 122 / 76; Pulse 78; Resp 16; Pulse Ox 98% on R/A; db ED Course: 07:55 Patient arrived in ED. rg4 07:55 Carolyn Delong FNP-C is PHCP. snw 07:55 Sabino Silverio MD is Attending Physician. snw 07:55 Carolyn Delong FNP-C is PHCP. snw 08:12 Arm band placed on. iw 08:13 Triage completed. iw 08:23 Radha Thakur, RN is Primary Nurse. db 08:55 Chest Pa And Lat (2 Views) XRAY In Process Unspecified. EDMS 10:55 Patient has correct armband on for positive identification. Call light in reach. Side db rails up X 1. 10:55 No provider procedures requiring assistance completed. Patient did not have IV access db during this emergency room visit. Administered Medications: 10:55 Not Given (Patient Refused): Sucralfate PO 1 grams PO once db Medication: 10:55 VIS not applicable for this client. db Outcome: 10:17 Discharge ordered by . iesha 10:55 Discharged to home ambulatory. db 10:55 Condition: stable 10:55 Discharge instructions given to patient, Instructed on discharge instructions, follow up and referral plans. Prescriptions given X 1. 10:57 Patient left the ED. db Signatures: Dispatcher [employer] EDCarolyn Coleman, SENIOR ASIC ENGINEER-C SENIOR ASIC ENGINEER-Csnw Nancy Crow, RN RN Merary Peacock rg4 Radha Thakur RN RN db
--- NOTE | 2022-10-06 10:18 | EDPHYS ---
Physician Documentation [facility] Name: Inessa Altman Age: 62 yrs Sex: Female : 1960 Arrival Date: 10/06/2022 Time: 07:55 Bed 18 Private MD: ED Physician Sabino Silverio HPI: 10/06 08:13 This 62 yrs old Female presents to ER via Ambulatory with complaints of Urinary snw Problem, Throat Bleeding. 08:13 The patient or guardian reports Pt is being treated with Doxycycline for Bronchitis, snw has noted that her urine is orange. Pt reports the posterior throat is bleeding. Onset: The symptoms/episode began/occurred acutely. Associated signs and symptoms: The patient has no apparent associated signs or symptoms. Severity of symptoms: At their worst the symptoms were moderate. The patient has not experienced similar symptoms in the past. The patient has been recently seen by a physician: the patient's primary care provider, with different complaint(s), and apparently was diagnosed with Bronchitis. Historical: - Allergies: 08:09 Antihistamine; iw - Home Meds: 08:09 aspirin 81 mg Oral tablet,chewable daily [Active]; atorvastatin 40 mg oral tablet every iw evening [Active]; risperidone 1 mg oral tablet daily [Active]; bupropion HCl 300 mg Oral Tablet, Extended Release 24 hr once [Active]; Epitol 200 mg oral tablet 3 times per day [Active]; risperidone 2 mg oral tablet every day at bedtime [Active]; fluticasone propionate 50 mcg/actuation intranasal spray, suspension daily [Active]; - PMHx: 08:09 Anxiety; Bipolar disorder; COPD; Depression; Emphysema; Osteoporosis; paranoid; iw - Immunization history:: Adult Immunizations unknown. - Social history:: Smoking status: unknown. ROS: 08:12 Constitutional: Negative for fever, chills, and weight loss, Eyes: Negative for injury, snw pain, redness, and discharge, Neck: Negative for injury, pain, and swelling, Cardiovascular: Negative for chest pain, palpitations, and edema, Respiratory: Negative for shortness of breath, cough, wheezing, and pleuritic chest pain, Back: Negative for injury and pain, MS/Extremity: Negative for injury and deformity, Skin: Negative for injury, rash, and discoloration, Neuro: Negative for headache, weakness, numbness, tingling, and seizure, Psych: Negative for depression, anxiety, suicide ideation, homicidal ideation, and hallucinations. 08:12 ENT: Positive for sore throat, bleeding from throat. 08:12 Abdomen/GI: Positive for abdominal cramps. 08:12 : Positive for orange urine . Exam: 08:06 Constitutional: This is a well developed, well nourished patient who is awake, alert, snw and in no acute distress. Head/Face: Normocephalic, atraumatic. Eyes: Pupils equal round and reactive to light, extra-ocular motions intact. Lids and lashes normal. Conjunctiva and sclera are non-icteric and not injected. Cornea within normal limits. Periorbital areas with no swelling, redness, or edema. Neck: Trachea midline, no thyromegaly or masses palpated, and no cervical lymphadenopathy. Supple, full range of motion without nuchal rigidity, or vertebral point tenderness. No Meningismus. Chest/axilla: Normal chest wall appearance and motion. Nontender with no deformity. No lesions are appreciated. Cardiovascular: Regular rate and rhythm with a normal S1 and S2. No gallops, murmurs, or rubs. Normal PMI, no JVD. No pulse deficits. Abdomen/GI: Soft, non-tender, with normal bowel sounds. No distension or tympany. No guarding or rebound. No evidence of tenderness throughout. Back: No spinal tenderness. No costovertebral tenderness. Full range of motion. Skin: Warm, dry with normal turgor. Normal color with no rashes, no lesions, and no evidence of cellulitis. MS/ Extremity: Pulses equal, no cyanosis. Neurovascular intact. Full, normal range of motion. Neuro: Awake and alert, GCS 15, oriented to person, place, time, and situation. Cranial nerves II-XII grossly intact. Motor strength 5/5 in all extremities. Sensory grossly intact. Cerebellar exam normal. Normal gait. Psych: Awake, alert, with orientation to person, place and time. Behavior, mood, and affect are within normal limits. 08:06 ENT: Ear canal(s): are normal, TM's: are normal, Nose: is normal, Posterior pharynx: erythema, that is mild, Voice: is normal. 08:06 Respiratory: the patient does not display signs of respiratory distress, Respirations: normal, Breath sounds: decreased breath sounds, that are mild, are heard in the left posterior upper lobe and left posterior lower lobe. Vital Signs: 08:09 BP 124 / 78; Pulse 79; Resp 16; Pulse Ox 98% on R/A; iw 10:55 BP 122 / 76; Pulse 78; Resp 16; Pulse Ox 98% on R/A; db MDM: 07:55 Patient medically screened. snw 08:15 Differential diagnosis: bronchitis, flu, URI. Antibiotic administration: pt is already snw on Doxycycline. Data interpreted: Pulse oximetry: on room air is 96 %. Interpretation: normal. Data reviewed: vital signs, nurses notes. 10:15 Test considered but Not performed: Labs: pt with normal vs, on abx for bronchitis, snw denies GI bleeding, no hematuria. Counseling: I had a detailed discussion with the patient and/or guardian regarding: the historical points, exam findings, and any diagnostic results supporting the discharge/admit diagnosis, lab results, radiology results, the need for outpatient follow up, for definitive care, to return to the emergency department if symptoms worsen or persist or if there are any questions or concerns that arise at home. Special discussion: Based on the history and exam findings, there is no indication for further emergent testing or inpatient evaluation. I discussed with the patient/guardian the need to see the primary care provider for further evaluation of the symptoms. 10/06 08:03 Order name: Urine Culture snw 10/06 08:58 Order name: Urinalysis; Complete Time: 09:01 EDMS 10/06 08:03 Order name: Chest Pa And Lat (2 Views) XRAY; Complete Time: 09:47 snw Administered Medications: 10:55 Not Given (Patient Refused): Sucralfate PO 1 grams PO once db Disposition: 13:36 Co-signature as Attending Physician, Sabino Silverio MD I reviewed the patient's care rn provided by the Advanced Practice Provider and agree with the diagnosis and treatment plan. Disposition Summary: 10/06/22 10:17 Discharge Ordered Location: Home snw Condition: Stable snw Diagnosis - Acute bronchitis, unspecified snw Followup: snw - With: Emergency Department - When: As needed - Reason: Worsening of condition Followup: snw - With: Private Physician - When: 2 - 3 days - Reason: Recheck today's complaints, Continuance of care, Re-evaluation by your physician Discharge Instructions: - Discharge Summary Sheet snw - Acute Bronchitis, Adult snw - Rehydration, Adult snw Forms: - Medication Reconciliation Form snw - Thank You Letter snw - Antibiotic Education snw - Prescription Opioid Use snw Prescriptions: - Pepcid 20 mg Oral Tablet - take 1 tablet by ORAL route once daily; 20 tablet; Refills: 0, Product snw Selection Permitted Signatures: Dispatcher [employer] EDCarolyn Coleman, STEAM ENGINEER-C STEAM ENGINEER-Csnw Nancy Crow, RN RN Sabino High MD MD rn Benton, Danielle, RN RN db Corrections: (The following items were deleted from the chart) 08:58 08:03 Urine Microscopic+U.LAB.BRZ ordered. [facility]
[2022-10-06] MEDS ORDERED: SUCRALFATE 1 GM TABLET ONE (10:51)
[2022-10-06 14:30] VITALS: O2SAT 98
[2022-10-06 14:31] VITALS: BP 122/76
== END 2022-10-06 10:57 | disposition home or self-care (01) ==
LOC: ER 07:51
DX: J20.9 Acute bronchitis, unspecified (principal); R07.0 Pain in throat; Z88.8 Allergy status to other drugs, medicaments and biological substances; Z79.82 Long term (current) use of aspirin
CPT/HCPCS: 71046; 81003; 87086; 87088; 99283

== ENCOUNTER 2023-11-30 05:17 | Emergency (ER) | payer OTHER ==
--- OUTSIDE RECORDS SUMMARY | 2023-11-30 05:20 | XMS REPORT | Continuity of Care Document ---
Author Name Unknown Address [address] [place] [address] [facility] thconnect Address [address] [place] [address] Care Team Providers Care Spray Maker Name Role Phone Brendan Crowell Primary Care Physician PURA MALDONADO Attending Clinician Unavailable PURA MALDONADO Attending Clinician Unavailable ESTHER CAMACHO Attending Clinician ESTHER Castellon Attending Clinician Pura Gonzalez DO Attending Clinician Cherelle Sotomayor MD Attending Clinician [phone] CHERELLE SOTOMAYOR Attending Clinician Unavailable Doctor Unassigned, [place] Attending Clinician U ran Schwarz, Amy Respiratory Attending Clinician U ANALISA Leong Attending Clinician Unavailable CHERELLE SOTOMAYOR Admitting Clinician Unavailable BELINDA LANDAVERDE Admitting Clinician Unavailjoseph ble Payers Payer Name Policy Type Policy Number Effective Date Expirati on Date Source [facility] [id number] 2022 00:00:00 Problems Condition Name Condition Details Condition Category Status Onset Date Resolution Date Last Treatment Date Treating Clinician Comments Source Postmenopa usal bleeding Postmenopa usal bleeding Disease Active 03-30 00:00: 00 [facility] Pelvic pressure in female Pelvic pressure in female Disease Active 03-30 00:00: 00 [facility] Bipolar I disorder, most recent episode (or current) depressed, severe, without mention of psychotic behavior Bipolar I disorder, most recent episode (or current) depressed, severe, without mention of psychotic behavior Disease Active 03-24 00:00: 00 [facility] Allergies, Adverse Reactions, Alerts Allergy Name Allergy Type Status Severity Reaction(s) Onset Date Inactive Date Treating Clinician Comments Source GUAIFENE SIN DRUG INGREDI Active Other-Cmnt 03-19 00:00: 00 [facility] Guaifene sin Propensi ty to adverse reaction s Active Other - See comments 03-19 00:00: 00 Tachycard ia [facility] NO KNOWN ALLERGIE S Drug Class Active [facility] Social History Social Habit Start Date Stop Date Quantity Comments Source [facility] Tobacco use and exposure 2023-11-29 00:00:00 2023-11-29 00:00:00 Smokeless tobacco non-user [facility] History of Social function 2023-11-29 00:00:00 2023-11-29 00:00:00 [facility] Alcoholic beverage intake 2023-11-29 00:00:00 2023-11-29 00:00:00 Current drinker of alcohol (finding) [facility] Alcohol intake 2023-03-30 00:00:00 2023-03-30 00:00:00 Current drinker of alcohol (finding) [facility] Alcohol Comment 2023-03-19 00:00:00 2023-03-19 00:00:00 rarely [facility] History of tobacco use 2022-10-05 00:00:00 Cigarette Smoker [facility] Sex assigned at 1960 00:00:00 1960 00:00:00 [facility] Smoking Status Start Date Stop Date Source Tobacco smoking consumption unknown [facility] Ex-smoker 2023-11-29 00:00:00 2023-11-29 00:00:00 [facility] Medications Ordered Medication Name Filled Medication Name Start Date Stop Date Current Medication? Ordering Clinician Indication Dosage Frequency Signature (SIG) Comments Components Source tiotropium- olodateroL (STIOLTO RESPIMAT) 2.5-2.5 mcg/actuati on Mist 11-28 00:00: 00 Yes [id number] 2{puff} Inhale 2 Puffs in the morning. [facility] albuterol 90 mcg/actuati on inhaler 11-28 00:00: 00 Yes [id number] 2{puff} Inhale 2 Puffs every 6 (six) hours as needed for Wheezing or Shortness of Breath. [facility] ASPIRIN ORAL 03-19 10:10: 51 Yes Take by mouth. [facility] carBAMazepi ne (EPITOL) 200 mg tablet 03-19 10:10: 11 Yes 200mg Take 1 tablet by mouth every 8 (eight) hours. [facility] fluticasone propionate 50 mcg/actuati on nasal spray 03-19 10:10: 11 Yes Use in each nostril daily. [facility] hydroCHLORO thiazide 12.5 mg tablet 02-26 00:00: 00 Yes TAKE 1/2 (ONE-HALF) TABLET BY MOUTH ONCE DAILY DIRECTED [facility] carBAMazepi ne (EPITOL) 200 mg tablet 12-21 10:49: 00 Yes 200mg Take 1 tablet by mouth every 8 (eight) hours. [facility] fluticasone propionate 50 mcg/actuati on nasal spray 12-21 10:49: 00 Yes Use in each nostril daily. [facility] fluticasone -umeclidin- vilanter (TRELEGY ELLIPTA) 100-62.5-25 mcg DsDv 12-21 00:00: 00 11-28 00:00 :00 No [id number] 1{puff} Inhale 1 Puff in the morning. [facility] cetirizine 10 mg tablet 12-17 00:00: 00 Yes [facility] risperiDONE 1 mg tablet 12-02 00:00: 00 Yes TAKE 1 TABLET BY MOUTH TWICE DAILY - TAKE EVERY MORNING AND AT NOON [facility] risperiDONE 2 mg tablet 12-02 00:00: 00 Yes 2mg Take 1 tablet by mouth at bedtime. [facility] buPROPion XL 300 mg 24 hr tablet 04 00:00: 00 Yes 300mg Take 1 tablet by mouth every morning. [facility] atorvastati n 40 mg tablet 10-12 00:00: 00 Yes TAKE 1 TABLET BY MOUTH ONCE DAILY AT BEDTIME FOR 90 DAYS [facility] ESCITALOPRA M 20 MG ORAL TAB 03-29 00:00: 00 Yes 1 Tab Oral DAILY [facility] VALACYCLOVI R 500 MG ORAL TAB 03-29 00:00: 00 Yes 1 Tab Oral DAILY [facility] CLONAZEPAM 1 MG ORAL TAB 03-29 00:00: 00 Yes 1 Tab Oral TID [facility] LITHIUM CARBONATE 300 MG ORAL TAB 03-29 00:00: 00 Yes 1 tab (300mg) in am & 2 Tabs (600mg) QHS [facility] Vital Signs Vital Name Observation Time Observation Value Comments S ource Systolic blood pressure 2023-11-29 14:54:00 127 mm[Hg] [facility] Diastolic blood pressure 2023-11-29 14:54:00 78 mm[Hg] [facility] Heart rate 2023-11-29 14:54:00 85 /min [facility] Respiratory rate 2023-11-29 14:54:00 19 /min [facility] Body height 2023-11-29 14:54:00 165.1 cm [facility] Body weight 2023-11-29 14:54:00 73.573 kg [facility] BMI 2023-11-29 14:54:00 26.99 kg/m2 [facility] Oxygen saturation in Arterial blood by Pulse oximetry 2023-11-29 14:54:00 98 /min [facility] Systolic blood pressure 2023-06-07 16:04:00 117 mm[Hg] [facility] Diastolic blood pressure 2023-06-07 16:04:00 70 mm[Hg] [facility] Heart rate 2023-06-07 16:04:00 84 /min [facility] Respiratory rate 2023-06-07 16:04:00 17 /min [facility] Body height 2023-06-07 16:04:00 165.1 cm [facility] Body weight 2023-06-07 16:04:00 73.539 kg [facility] BMI 2023-06-07 16:04:00 26.98 kg/m2 [facility] Oxygen saturation in Arterial blood by Pulse oximetry 2023-06-07 16:04:00 98 /min [facility] Systolic blood pressure 2023-03-30 14:46:00 113 mm[Hg] [facility] Diastolic blood pressure 2023-03-30 14:46:00 75 mm[Hg] [facility] Heart rate 2023-03-30 14:46:00 69 /min [facility] Body temperature 2023-03-30 14:46:00 36.39 Serena [facility] Respiratory rate 2023-03-30 14:46:00 18 /min [facility] Body height 2023-03-30 14:46:00 162.6 cm [facility] Body weight 2023-03-30 14:46:00 74.844 kg [facility] BMI 2023-03-30 14:46:00 28.32 kg/m2 [facility] Systolic blood pressure 2023-03-19 15:11:00 102 mm[Hg] [facility] Diastolic blood pressure 2023-03-19 15:11:00 66 mm[Hg] [facility] Heart rate 2023-03-19 15:11:00 71 /min [facility] Body temperature 2023-03-19 15:11:00 36.72 Serena [facility] Body height 2023-03-19 15:11:00 162.6 cm [facility] Body weight 2023-03-19 15:11:00 74.934 kg [facility] BMI 2023-03-19 15:11:00 28.36 kg/m2 [facility] Systolic blood pressure 2022-12-21 15:49:00 124 mm[Hg] [facility] Diastolic blood pressure 2022-12-21 15:49:00 73 mm[Hg] [facility] Heart rate 2022-12-21 15:49:00 71 /min [facility] Respiratory rate 2022-12-21 15:49:00 19 /min [facility] Body height 2022-12-21 15:49:00 162.6 cm [facility] Body weight 2022-12-21 15:49:00 72.712 kg [facility] BMI 2022-12-21 15:49:00 27.52 kg/m2 [facility] Oxygen saturation in Arterial blood by Pulse oximetry 2022-12-21 15:49:00 95 /min [facility] Procedures Procedure Date / Time Performed Performing Clinician Source PATIENT QUESTIONNAIRE 2023-03-19 05:01:00 Doctor Unassigned, [place] [facility] POCT URINALYSIS W/O SPECIFIC GRAVITY 2023-03-19 00:00:00 Cherelle Sotomayor [facility] EXTERNAL PROVIDER RECORDS 2023-03-08 05:01:00 Doctor Unassigned, [place] [facility] PULMONARY FUNCTION TEST (RESULTS) 2023-02-23 14:47:18 Pura Maldonado [facility] CONSENT/REFUSAL FOR DIAGNOSIS AND TREATMENT 2022-12-21 15:26:14 Doctor Unassigned, [place] [facility] Encounters Start Date/Time End Date/Time Encounter Type Admission Type Attending Clinicians Care Facility Care Department Encounter ID Source 2024-05-30 10:00:00 2024-05-30 10:00:00 Outpatient R PURA MALDONADO SHIWAN [facility] [id number] [facility] 2023-11-29 10:00:00 2023-11-29 10:43:50 Outpatient R PURA MALDONADO [facility] [id number] [facility] 2023-11-29 10:00:00 2023-11-29 10:43:50 Office Visit Pura Maldonado [facility] 1.2.840.114 350.1.13.10 4.2.7.2.686 [id number] [facility] 2023-09-15 11:26:29 2023-09-15 11:26:29 Outpatient [facility] [id number] Ambrose Encarnacion 2023-07-01 14:21:50 2023-07-01 14:21:50 Outpatient [facility] [id number] Ambrose Encarnacion 2023-06-07 10:30:00 2023-06-07 10:33:07 [facility] [id number] [facility] 2023-06-07 10:30:00 2023-06-07 10:33:07 [facility] 1.2.840.114 350.1.13.10 4.2.7.2.686 [id number] [facility] 2023-04-19 00:00:00 2023-04-19 00:00:00 Telephone Bran Cherelle [facility] 1.2.840.114 350.1.13.10 4.2.7.2.686 [id number] [facility] 2023-04-06 10:12:46 2023-04-06 23:59:00 Outpatient [facility] [id number] [facility] 2023-03-30 10:00:00 2023-03-30 10:24:56 Outpatient R SANDY-TODD PRESTONSOL SANDY-YASMINE STODDESTHER [facility] [id number] [facility] 2023-03-30 10:00:00 2023-03-30 10:24:56 Office Visit Sandy-Todd Prestonsol [facility] 1.2.840.114 350.1.13.10 4.2.7.2.686 [id number] [facility] 2023-03-19 10:30:00 2023-03-19 11:59:26 Out[facility] [id number] [facility] 2023-03-19 10:30:00 2023-03-19 11:59:26 Office Visit Cherelle Sotomayor [facility] 1.2840.114 350.1.13.10 4.2.7.2.686 [id number] [facility] 2023-03-19 00:00:00 2023-03-19 00:00:00 Orders Only Doctor Unassigned, [place] [facility] 1.20.114 350.1.13.10 4.2.7.2.686 [id number] [facility] 2023-03-08 00:00:00 2023-03-08 00:00:00 Orders Only Doctor Unassigned, [place] [facility] 1.2840.114 350.1.13.10 4.2.7.2.686 [id number] [facility] 2023-03-08 00:00:00 2023-03-08 00:00:00 Telephone Cherelle Sotomayor [facility] 1.840.114 350.1.13.10 4.2.7.2.686 [id number] [facility] 2023-03-05 00:00:00 2023-03-05 00:00:00 [facility] 1.84.114 350.1.13.10 4.2.7.2.686 [id number] [facility] 2023-02-23 09:30:00 2023-02-23 11:00:00 Store Clerk Cashier Visit Therapist, Adc Respiratory Pura Maldonado [facility] 1.20.114 350.1.13.10 4.2.7.2.686 [id number] [facility] 2023-02-23 09:30:00 2023-02-23 09:30:00 Outpatient R [facility] [id number] [facility] 2023-02-23 09:30:00 2023-02-23 09:30:00 Outpatient R PURA MALDONADO [facility] [id number] [facility] 2023-02-23 00:00:00 2023-02-23 00:00:00 Orders Only Pura Maldonado [facility] 1.840.114 350.1.13.10 4.2.7.2.686 [id number] [facility] 2023-01-21 15:40:27 2023-01-21 15:40:27 Outpatient [facility] [id number] Ambrose Encarnacion 2022-12-21 11:00:00 2022-12-21 11:31:23 Office Visit Pura Maldonado [facility] 1..840.114 350.1.13.10 4.2.7.2.686 [id number] [facility] 2022-12-21 11:00:00 2022-12-21 11:31:23 Outpatient R PURA MALDONADO [facility] [id number] [facility] 2022-12-21 00:00:00 2022-12-21 00:00:00 Orders Only Doctor Unassigned, [place] [facility] 1..840.114 350.1.13.10 4.2.7.2.686 [id number] [facility] 2022-11-05 11:02:02 2022-11-05 11:02:02 Outpatient [facility] [id number] Ambrose Encarnacion 2022-07-22 08:10:39 2022-07-22 08:10:39 Outpatient [facility] [id number] Ambrose Encarnacion 2006-05-27 00:00:00 2006-05-27 13:57:52 Outpatient [facility] [id number] [facility] 2006-04-01 00:00:00 2006-04-01 13:14:08 Outpatient [facility] [id number] [facility] 2006-03-24 16:59:00 2006-03-29 11:45:00 Inpatient X ANALISA LOCKWOOD [facility] [id number] [facility] 2005-11-03 00:00:00 2005-11-03 12:25:06 Outpatient [facility] [id number] [facility] 2005-11-03 00:00:00 2005-11-03 10:12:21 Outpatient [facility] [id number] [facility] 2005-07-28 00:00:00 2005-07-28 13:41:43 Outpatient [facility] [id number] [facility] Results Test Description Test Time Test Comments Results Result Co mments Source [facility] W/O SPECIFIC [id number] 15:24:00* Test Item Value Reference Range Interpretation Comme nts POCT PH U (test code = 3254) 8 mg/dl 5-8 POCT U LEUK EST (test code = 3263) Negative Negative - Negative POCT U NIT (test code = 3262) Negative Negative - Negati ve POCT U PROT (test code = 3259) Negative Negative - Negat moreno POCT U GLU (test code = 3256) Normal Negative - Negati ve POCT U KETONE (test code = 3258) Negative Negative - Neg ative POCT U BLD (test code = 3257) Negative Negative - Negati ve [facility]RESULTS[facility]2023-02-23 14:47:18* Test Item Value Reference Range Interpretation Comme nts FVC Actual (test code = 3994) 2.49 L FEV1 Actual (test code = 3993) 1.80 L FEV1/FVC Actual (test code = 3995) 72 % [facility] Notes Date/Time Note Provider Source 2023-03-08 16:51:52 OvC90F/drpfa/j74V7Yw ciU1MHu/iq EK29Bcw+Hm87p3D6GFfltd8vNzVq+2Hp 9684-94-67F48:51:52 Received medical records from Darryl Rabago MD and uploaded in chart.External providers records [id number] encounter StxjOG1714-52-76J54:53:04Telepho ne encounter NoteTXT1.2.840.227976.1.13.104.2 .7.2.320510|[id number] e for patient itnw50609-6OhecSSRFAHZHWX[address] HyflAwrtudzcfSyzspzjekUXQH233835 3119KAIKZZOIJOEKTLCOMSVION0320-2 8-21T16:53:041.2.840.564760.1.72 .3.15|1.2.840.793312.1.13.104.2. 7.2.727879_[id number] [facility] 2023-03-05 15:17:00 syNXcXsAo7BBoOC+9Dqw nNd5uzPN1A+r obZoRjwF97U24SjhazF/nA57vkt7kGaq 4871-92-10U15:17:00 Mailing results. Multiple attempts to inform of stable PFT results. Call back PRN. [id number] encounter GqxfFL8350-86-06I75:17:35Telepho ne encounter NoteTXT1.2.840.488691.1.13.104.2 .7.2.143820|[id number] e for patient fqwi40522-7WagvMK745093311Olvvum Vazquez [address] OngwXlbcpznikZjgjpsxfwICZI562814 1180VWEKSWIUQQAGXNJVNNTJXD9201-9 5:17:351.2.840.529774.1.72 .3.15|1.2.840.885958.1.13.104.2. 7.2.727879_[id number] Rosinaabel Vazquez [facility] 2023-03-05 12:04:05 jF2qYNLgJsx2z/oj+hji rhlncWGup11V 6mmmxjtJcX+R/ohztLZDY9WPb7mT9uhs 0679-41-52U25:04:05 Inessa Altman is a 62 year old femalePt is retuning a call for results. Please advisePul function test 12452-4Rikmbayjn encounter TaplMC2816-00-38U76:05:03Telepho ne encounter NoteTXT1.2.840.201115.1.13.104.2 .7.2.258099|[id number] e for patient ajjv23771-5RbqwPUDTZXOHOP[address] GubrJebzppfczUqzpdrsvzYCNX857929 4588NHRPLNHSFLNZVWWBPUMSWH0030-8 :05:031.2.840.793270.1.72 .3.15|1.2.840.566200.1.13.104.2. 7.2.727879_[id number] [facility]"
--- NOTE | 2023-11-30 05:42 | ER ---
Nurse's Notes [facility] Name: Inessa Altman Age: 63 yrs Sex: Female : 1960 Arrival Date: 11/30/2023 Time: 05:17 Bed 6 Private MD: Diagnosis: Toxic effect of unspecified spider venom;Acute spider bite with localized cellulitis Presentation: 11/29 05:37 Chief complaint: Patient states: unknown insect bite to upper right knee with pain and lg3 swelling X1 week. Coronavirus screen: Client denies travel out of the [place] in the last 14 days. At this time, the client does not indicate any symptoms associated with coronavirus-19. Ebola Screen: No symptoms or risks identified at this time. Initial Sepsis Screen: Does the patient meet any 2 criteria? No. Patient's initial sepsis screen is negative. Does the patient have a suspected source of infection? No. Patient's initial sepsis screen is negative. Risk Assessment: Do you want to hurt yourself or someone else? Patient reports no desire to harm self or others. Onset of symptoms is unknown. 05:37 Method Of Arrival: Ambulatory lg3 05:37 Acuity: MINGO 4 lg3 Triage Assessment: 05:38 General: Appears in no apparent distress. comfortable, Behavior is calm, cooperative. lg3 Pain: Complains of pain in right knee Pain does not radiate. EENT: No deficits noted. No signs and/or symptoms were reported regarding the EENT system. Neuro: No deficits noted. [place] Agitation-Sedation Scale (RASS): 0 - Alert and Calm Level of Consciousness is awake, alert, obeys commands, Oriented to person, place, time, situation. Cardiovascular: No deficits noted. Denies chest pain, shortness of breath, Capillary refill < 3 seconds Clubbing of nail beds is absent JVD is absent Patient's skin is warm and dry. Respiratory: No deficits noted. Airway is patent Respiratory effort is even, unlabored, Respiratory pattern is regular, symmetrical. GI: No deficits noted. No signs and/or symptoms were reported involving the gastrointestinal system. Abdomen is round non-distended, obese. : No deficits noted. No signs and/or symptoms were reported regarding the genitourinary system. Derm: Skin is intact, is healthy with good turgor, Skin is dry, Skin is normal, Skin temperature is warm Wound noted right knee. Musculoskeletal: No deficits noted. No signs and/or symptoms reported regarding the musculoskeletal system. Circulation, motion, and sensation intact. Range of motion: intact in all extremities. Historical: - Allergies: 05:38 Antihistamine; lg3 - PMHx: 05:38 Anxiety; Bipolar disorder; COPD; Depression; Emphysema; Osteoporosis; paranoid; lg3 - PSHx: 05:38 None; lg3 - Immunization history:: Adult Immunizations up to date, Client reports having NOT received the Covid vaccine. Flu vaccine is up to date. - Infectious Disease History:: Denies. - Social history:: Smoking status: Patient denies any tobacco usage or history of. Patient uses street drugs, marijuana, Patient/guardian denies using alcohol. - Family history:: not pertinent. Screenin:40 [facility] ED Fall Risk Assessment (Adult) History of falling in the last 3 months, lg3 including since admission No falls in past 3 months (0 pts) Confusion or Disorientation No (0 pts) Intoxicated or Sedated No (0 pts) Impaired Gait No (0 pts) Mobility Assist Device Used No (0 pt) Altered Elimination No (0 pt) Score/Fall Risk Level 0 - 2 = Low Risk Oriented to surroundings, Maintained a safe environment, Educated pt \T\ family on fall prevention, incl call for assistance when getting out of bed, Assessed \T\ reinforced patient's understanding of fall precautions. Abuse screen: Denies threats or abuse. Denies injuries from another. Nutritional screening: No deficits noted. Tuberculosis screening: No symptoms or risk factors identified. Assessment: 05:40 General: see triage assessment. lg3 Vital Signs: 05:37 BP 137 / 90; Pulse 84; Resp 17 S; Temp 97.8(O); Pulse Ox 98% on R/A; Weight 72.57 kg lg3 (R); Height 5 ft. 5 in. (R); 05:52 BP 129 / 89; Pulse 82; Resp 18 S; Temp 97.7(O); Pulse Ox 99% on R/A; lg3 05:37 Body Mass Index 26.63 (72.57 kg, 165.1 cm) lg3 [place] Coma Score: 06:22 Eye Response: spontaneous(4). Motor Response: obeys commands(6). Verbal Response: sp4 oriented(5). Total: 15. ED Course: 05:20 Patient arrived in ED. ra3 05:34 Jakub Clements MD is Attending Physician. sp4 05:38 Triage completed. lg3 05:38 Arm band placed on right wrist. lg3 05:40 Patient has correct armband on for positive identification. Bed in low position. Call lg3 light in reach. Side rails up X 1. Client placed on continuous cardiac and pulse oximetry monitoring. NIBP monitoring applied. Door closed. Noise minimized. Warm blanket given. Pillow given. 05:52 No provider procedures requiring assistance completed. Patient did not have IV access lg3 during this emergency room visit. Administered Medications: 05:46 Drug: Trimethoprim-Sulfamethoxazole PO (160 mg-800 mg (DS) 1 tablet PO once Route: PO; lg3 05:51 Follow up: Response: No adverse reaction lg3 05:46 Drug: Ibuprofen PO 800 mg PO once Route: PO; lg3 05:51 Follow up: Response: No adverse reaction lg3 Medication: 05:40 VIS not applicable for this client. lg3 Outcome: 05:42 Discharge ordered by . sp4 05:52 Discharged to home ambulatory, lg3 05:52 Condition: stable 05:52 Discharge instructions given to patient, Instructed on discharge instructions, follow up and referral plans. medication usage, Demonstrated understanding of instructions, follow-up care, medications, Prescriptions given X 2, 05:52 Patient left the ED. lg3 Signatures: Louise Lechuga RN RN lg3 Jakub Clements MD MD sp4 Ritu Cueva ra3
--- NOTE | 2023-11-30 05:42 | EDPHYS ---
Physician Documentation [facility] Name: Inessa Altman Age: 63 yrs Sex: Female : 1960 Arrival Date: 11/30/2023 Time: 05:17 Bed 6 Private MD: ED Physician Jakub Clements HPI: 11/29 05:34 This 63 yrs old Female presents to ER via Unassigned with complaints of Leg sp4 Pain - states she has a hole with a burning sensation. 06:22 Patient complains of the right thigh redness and insect bite. . sp4 Historical: - Allergies: 05:38 Antihistamine; lg3 - PMHx: 05:38 Anxiety; Bipolar disorder; COPD; Depression; Emphysema; Osteoporosis; paranoid; lg3 - PSHx: 05:38 None; lg3 - Immunization history:: Adult Immunizations up to date, Client reports having NOT received the Covid vaccine. Flu vaccine is up to date. - Infectious Disease History:: Denies. - Social history:: Smoking status: Patient denies any tobacco usage or history of. Patient uses street drugs, marijuana, Patient/guardian denies using alcohol. - Family history:: not pertinent. ROS: 06:22 Constitutional: Negative for fever, chills, and weight loss, Positive for right thigh sp4 insect bite. 06:22 All other systems are negative, Exam: 06:22 Constitutional: This is a well developed, well nourished patient who is awake, alert, sp4 and in no acute distress. Head/Face: Normocephalic, atraumatic. Eyes: Pupils equal round and reactive to light, extra-ocular motions intact. Lids and lashes normal. Conjunctiva and sclera are not injected. Cornea within normal limits. Periorbital areas with no swelling, redness, or edema. ENT: Nares patent. No nasal discharge, no septal abnormalities noted. Tympanic membranes are normal and external auditory canals are clear. Oropharynx with no redness, swelling, or masses, exudates, or evidence of obstruction, uvula midline. Mucous membranes moist. Neck: Trachea midline, no thyromegaly or masses palpated, and no cervical lymphadenopathy. Supple, full range of motion without nuchal rigidity, or vertebral point tenderness. Chest/axilla: Normal chest wall appearance and motion. Nontender with no deformity. No lesions are appreciated. Cardiovascular: Regular rate and rhythm with a normal S1 and S2. No gallops, murmurs, or rubs. Normal PMI, no JVD. No pulse deficits. Respiratory: Lungs have equal breath sounds bilaterally, clear to auscultation and percussion. No rales, rhonchi or wheezes noted. No increased work of breathing, no retractions or nasal flaring. Abdomen/GI: Soft, with normal bowel sounds. No distension or tympany. No guarding or rebound. No evidence of tenderness throughout. Back: No spinal tenderness. No costovertebral tenderness. Skin: Warm, dry with normal turgor. Normal color with no rashes, there is right anterior lower thigh lesion indicative of infected spider bite. MS/ Extremity: Pulses equal, no cyanosis. Neurovascular intact. Full, normal range of motion. Neuro: Awake and alert, GCS 15, oriented to person, place, time, and situation. Cranial nerves II-XII grossly intact. Motor strength 5/5 in all extremities. Sensory grossly intact. Psych: Awake, alert, with orientation to person, place and time. Behavior, mood, and affect are within normal limits Vital Signs: 05:37 BP 137 / 90; Pulse 84; Resp 17 S; Temp 97.8(O); Pulse Ox 98% on R/A; Weight 72.57 kg lg3 (R); Height 5 ft. 5 in. (R); 05:52 BP 129 / 89; Pulse 82; Resp 18 S; Temp 97.7(O); Pulse Ox 99% on R/A; lg3 05:37 Body Mass Index 26.63 (72.57 kg, 165.1 cm) lg3 Sidney Coma Score: 06:22 Eye Response: spontaneous(4). Motor Response: obeys commands(6). Verbal Response: sp4 oriented(5). Total: 15. MDM: 05:42 Patient medically screened. sp4 06:22 Differential diagnosis: contusion, abrasion, tendonitis. Data reviewed: vital signs, sp4 nurses notes. ED course: Presents with appears to be small infected spider bite without drainable abscess. Patient has small amount of cellulitis surrounding infected spider bite. Patient will be treated with p.o. Bactrim and will be advised to perform daily cleansing and irrigation with rubbing alcohol. . Administered Medications: 05:46 Drug: Trimethoprim-Sulfamethoxazole PO (160 mg-800 mg (DS) 1 tablet PO once Route: PO; lg3 05:51 Follow up: Response: No adverse reaction lg3 05:46 Drug: Ibuprofen PO 800 mg PO once Route: PO; lg3 05:51 Follow up: Response: No adverse reaction lg3 Disposition Summary: 11/30/23 05:42 Discharge Ordered Notes: Location: Home sp4 Problem: new sp4 Symptoms: are unchanged sp4 Condition: Stable sp4 Diagnosis - Toxic effect of unspecified spider venom sp4 - Acute spider bite with localized cellulitis sp4 Followup: sp4 - With: Private Physician - When: 7 - 10 days - Reason: Recheck today's complaints Discharge Instructions: - Discharge Summary Sheet sp4 - Brown Recluse Spider Bite, [id number] sp4 Forms: - Patient Portal Instructions sp4 Prescriptions: - Ibuprofen 600 mg Oral Tablet - take 1 tablet ORAL route every 6 hours As needed take with food; 30 tablet; sp4 Refills: 0, Product Selection Permitted - Bactrim DS 800-160 mg Oral Tablet - take 1 tablet ORAL route every 12 hours for 10 days; 20 tablet; Refills: 0, sp4 Product Selection Permitted Signatures: Louise Lechuga RN RN lg3 Jakub Clements MD MD sp4
[2023-11-30] MEDS ORDERED: SMZ./TMP. 800/160 MG TABLET ONE (05:43)
[2023-11-30] MEDS ORDERED: IBUPROFEN 400 MG TAB ONE (05:43)
[2023-11-30 06:10] VITALS: BP 129/89; TEMP 97.7; O2SAT 99
== END 2023-11-30 05:52 | disposition home or self-care (01) ==
LOC: ER 05:17
DX: L03.115 Cellulitis of right lower limb (principal); T63.301A Toxic effect of unspecified spider venom, accidental (unintentional), initial encounter; Z88.8 Allergy status to other drugs, medicaments and biological substances
CPT/HCPCS: 99284

== ENCOUNTER 2024-03-16 07:22 | Emergency (ER) | payer OTHER ==
--- OUTSIDE RECORDS SUMMARY | 2024-03-16 07:27 | XMS REPORT | Continuity of Care Document ---
Author Name Unknown Address [address] [facility] [address] [place] [address] [facility] thconnect Address [address] [facility] [place] [address] Care Team Providers Care Supervising Fire Marshal Name Role Phone IRAIDA TEQUILA Primary Care Physician PURA Hendricks Attending Clinician PURA Hendricks Attending Clinician ESTHER Bean Attending Clinician ESTHER Castellon Attending Clinician Pura Gonzalez DO Attending Clinician Cherelle Sotomayor MD Attending Clinician CHERELLE SOTOMAYOR Attending Clinician Unavailable Doctor Unassigned, [place] Attending Clinician U ran Therapist, Amy Respiratory Attending Clinician U ANALISA Leong Attending Clinician Unavailable CHERELLE SOTOMAYOR Admitting Clinician Unavailable BELINDA LANDAVERDE Admitting Clinician [facility] Payers Payer Name Policy Type Policy Number Effective Date Expirati on Date Source [facility] [id number] 2022 00:00:00 Problems Condition Name Condition Details Condition Category Status Onset Date Resolution Date Last Treatment Date Treating Clinician Comments Source Postmenopa usal bleeding Postmenopa usal bleeding Disease Active 03-30 00:00: 00 [facility] Pelvic pressure in female Pelvic pressure in female Disease Active 03-30 00:00: 00 [facility] Bipolar I disorder, most recent episode (or current) depressed, severe, without mention of psychotic behavior Bipolar I disorder, most recent episode (or current) depressed, severe, without mention of psychotic behavior Disease Active 03-24 00:00: 00 [facility] Allergies, Adverse Reactions, Alerts Allergy Name Allergy Type Status Severity Reaction(s) Onset Date Inactive Date Treating Clinician Comments Source GUAIFENE SIN DRUG INGREDI Active Other-Cmnt 03-19 00:00: 00 [facility] Guaifene sin Propensi ty to adverse reaction s Active Other - See comments 03-19 00:00: 00 Tachycard ia [facility] NO KNOWN ALLERGIE S Drug Class Active [facility] Social History Social Habit Start Date Stop Date Quantity Comments Source Gender [facility] Tobacco use and exposure 2023-11-29 00:00:00 2023-11-29 00:00:00 Smokeless tobacco non-user [facility] History of Social function 2023-11-29 00:00:00 2023-11-29 00:00:00 [facility] Alcoholic beverage intake 2023-11-29 00:00:00 2023-11-29 00:00:00 Current drinker of alcohol (finding) [facility] Alcohol intake 2023-03-30 00:00:00 2023-03-30 00:00:00 Current drinker of alcohol (finding) [facility] Alcohol Comment 2023-03-19 00:00:00 2023-03-19 00:00:00 rarely [facility] History of tobacco use 2022-10-05 00:00:00 Cigarette Smoker [facility] Sex assigned at 1960 00:00:00 1960 00:00:00 [facility] Smoking Status Start Date Stop Date Source Tobacco smoking consumption unknown [facility] Ex-smoker 2023-11-29 00:00:00 2023-11-29 00:00:00 [facility] Medications Ordered Medication Name Filled Medication Name Start Date Stop Date Current Medication? Ordering Clinician Indication Dosage Frequency Signature (SIG) Comments Components Source tiotropium- olodateroL (STIOLTO RESPIMAT) 2.5-2.5 mcg/actuati on Mist 11-28 00:00: 00 Yes [id number] 2{puff} Inhale 2 Puffs in the morning. [facility] albuterol 90 mcg/actuati on inhaler 11-28 00:00: 00 Yes [id number] 2{puff} Inhale 2 Puffs every 6 (six) hours as needed for Wheezing or Shortness of Breath. [facility] ASPIRIN ORAL 03-19 10:10: 51 Yes Take by mouth. [facility] carBAMazepi ne (EPITOL) 200 mg tablet 03-19 10:10: 11 Yes 200mg Take 1 tablet by mouth every 8 (eight) hours. [facility] fluticasone propionate 50 mcg/actuati on nasal spray 03-19 10:10: 11 Yes Use in each nostril daily. [facility] hydroCHLORO thiazide 12.5 mg tablet 02-26 00:00: 00 Yes TAKE 1/2 (ONE-HALF) TABLET BY MOUTH ONCE DAILY DIRECTED [facility] carBAMazepi ne (EPITOL) 200 mg tablet 12-21 10:49: 00 Yes 200mg Take 1 tablet by mouth every 8 (eight) hours. [facility] fluticasone propionate 50 mcg/actuati on nasal spray 12-21 10:49: 00 Yes Use in each nostril daily. [facility] fluticasone -umeclidin- vilanter (TRELEGY ELLIPTA) 100-62.5-25 mcg DsDv 12-21 00:00: 00 11-28 00:00 :00 No [id number] 1{puff} Inhale 1 Puff in the morning. [facility] cetirizine 10 mg tablet 12-17 00:00: 00 Yes [facility] risperiDONE 1 mg tablet 12-02 00:00: 00 Yes TAKE 1 TABLET BY MOUTH TWICE DAILY - TAKE EVERY MORNING AND AT NOON [facility] risperiDONE 2 mg tablet 12-02 00:00: 00 Yes 2mg Take 1 tablet by mouth at bedtime. [facility] buPROPion XL 300 mg 24 hr tablet 10-20 00:00: 00 Yes 300mg Take 1 tablet by mouth every morning. [facility] atorvastati n 40 mg tablet 10-12 00:00: 00 Yes TAKE 1 TABLET BY MOUTH ONCE DAILY AT BEDTIME FOR 90 DAYS [facility] ESCITALOPRA M 20 MG ORAL TAB 03-29 00:00: 00 Yes 1 Tab Oral DAILY [facility] VALACYCLOVI R 500 MG ORAL TAB 03-29 00:00: 00 Yes 1 Tab Oral DAILY [facility] CLONAZEPAM 1 MG ORAL TAB 03-29 00:00: 00 Yes 1 Tab Oral TID [facility] LITHIUM CARBONATE 300 MG ORAL TAB 03-29 00:00: 00 Yes 1 tab (300mg) in am & 2 Tabs (600mg) QHS [facility] Vital Signs Vital Name Observation Time Observation Value Comments S ource Systolic blood pressure 2023-11-29 14:54:00 127 mm[Hg] [facility] Diastolic blood pressure 2023-11-29 14:54:00 78 mm[Hg] [facility] Heart rate 2023-11-29 14:54:00 85 /min [facility] Respiratory rate 2023-11-29 14:54:00 19 /min [facility] Body height 2023-11-29 14:54:[address] [facility] Body weight 2023-11-29 14:54:[address] [facility] BMI 2023-11-29 14:54:00 26.99 kg/m2 [facility] Oxygen saturation in Arterial blood by Pulse oximetry 2023-11-29 14:54:00 98 /min [facility] Systolic blood pressure 2023-06-07 16:04:00 117 mm[Hg] [facility] Diastolic blood pressure 2023-06-07 16:04:00 70 mm[Hg] [facility] Heart rate 2023-06-07 16:04:00 84 /min [facility] Respiratory rate 2023-06-07 16:04:00 17 /min [facility] Body height 2023-06-07 16:04:00 165.1 cm [facility] Body weight 2023-06-07 16:04:[address] [facility] BMI 2023-06-07 16:04:00 26.98 kg/m2 [facility] Oxygen saturation in Arterial blood by Pulse oximetry 2023-06-07 16:04:00 98 /min [facility] Systolic blood pressure 2023-03-30 14:46:00 113 mm[Hg] [facility] Diastolic blood pressure 2023-03-30 14:46:00 75 mm[Hg] [facility] Heart rate 2023-03-30 14:46:00 69 /min [facility] Body temperature 2023-03-30 14:46:00 36.39 Serena [facility] Respiratory rate 2023-03-30 14:46:00 18 /min [facility] Body height 2023-03-30 14:46:[address] [facility] Body weight 2023-03-30 14:46:[address] [facility] BMI 2023-03-30 14:46:00 28.32 kg/m2 [facility] Systolic blood pressure 2023-03-19 15:11:00 102 mm[Hg] [facility] Diastolic blood pressure 2023-03-19 15:11:00 66 mm[Hg] [facility] Heart rate 2023-03-19 15:11:00 71 /min [facility] Body temperature 2023-03-19 15:11:00 36.72 Serena [facility] Body height 2023-03-19 15:11:[address] [facility] Body weight 2023-03-19 15:11:[address] [facility] BMI 2023-03-19 15:11:00 28.36 kg/m2 [facility] Systolic blood pressure 2022-12-21 15:49:00 124 mm[Hg] [facility] Diastolic blood pressure 2022-12-21 15:49:00 73 mm[Hg] [facility] Heart rate 2022-12-21 15:49:00 71 /min [facility] Respiratory rate 2022-12-21 15:49:00 19 /min [facility] Body height 2022-12-21 15:49:[address] [facility] Body weight 2022-12-21 15:49:[address] [facility] BMI 2022-12-21 15:49:00 27.52 kg/m2 [facility] Oxygen saturation in Arterial blood by Pulse oximetry 2022-12-21 15:49:00 95 /min [facility] Procedures Procedure Date / Time Performed Performing Clinician Source PATIENT QUESTIONNAIRE 2023-03-19 05:01:00 Doctor Unassigned, [place] [facility] POCT URINALYSIS W/O SPECIFIC GRAVITY 2023-03-19 00:00:00 Cherelle Sotomayor [facility] EXTERNAL PROVIDER RECORDS 2023-03-08 05:01:00 Doctor Unassigned, [place] [facility] PULMONARY FUNCTION TEST (RESULTS) 2023-02-23 14:47:18 Pura Maldonado [facility] CONSENT/REFUSAL FOR DIAGNOSIS AND TREATMENT 2022-12-21 15:26:14 Doctor Unassigned, [place] [facility] Encounters Start Date/Time End Date/Time Encounter Type Admission Type Attending Clinicians Care Facility Care Department Encounter ID Source 2024-05-30 10:00:00 2024-05-30 10:00:00 Outpatient PURA QUINTANA SHIWAN [facility] [id number] [facility] 2024-02-02 15:00:24 2024-02-02 15:00:24 Outpatient SFA [facility] [id number] Ambrose Burk Shashank 2023-12-14 09:09:41 2023-12-14 09:09:41 Outpatient SFA S[facility] [id number] Ambrose F Shashank 2023-11-29 10:00:00 2023-11-29 10:43:50 Outpatient R PURA MALDONADO SHIWAN [facility] [id number] [facility] 2023-11-29 10:00:00 2023-11-29 10:43:50 Office Visit Pura Maldonado [facility] [id number] 350.1.13.10 4.2.7.2.686 [id number] [facility] 2023-09-15 11:26:29 2023-09-15 11:26:29 Outpatient SFA [facility] [id number] Ambrose Encarnacion 2023-07-01 14:21:50 2023-07-01 14:21:50 Outpatient SFA [facility] [id number] Ambrose Encarnacion 2023-06-07 10:30:00 2023-06-07 10:33:07 Outpatient R PURA MALDONADO SHINMFred [facility] [id number] [facility] 2023-06-07 10:30:00 2023-06-07 10:33:07 Office Visit Pura Maldonado [facility] [id number] 350.1.13.10 4.2.7.2.686 [id number] [facility] 2023-04-19 00:00:00 2023-04-19 00:00:00 Telephone Cherelle Sotomayor [facility] 1.2.840.114 350.1.13.10 4.2.7.2.686 [id number] [facility] 2023-04-06 10:12:46 2023-04-06 23:59:00 Outpatient R [facility] [id number] [facility] 2023-03-30 10:00:00 2023-03-30 10:24:56 Outpatient R TOR Benjamin, ESTHER CASE [facility] [id number] [facility] 2023-03-30 10:00:00 2023-03-30 10:24:56 Office Visit Ashutoshfranklyn benjamin Esther [facility] 1.2840.114 350.1.13.10 4.2.7.2.686 [id number] [facility] 2023-03-19 10:30:00 2023-03-19 11:59:26 Outpatient R BRAN [facility] [id number] [facility] 2023-03-19 10:30:00 2023-03-19 11:59:26 Office Visit Bran Cherelle [facility] 1.2840.114 350.1.13.10 4.2.7.2.686 [id number] [facility] 2023-03-19 00:00:00 2023-03-19 00:00:00 Orders Only Doctor Unassigned, [place] [facility] 1.2.840.114 350.1.13.10 4.2.7.2.686 [id number] [facility] 2023-03-08 00:00:00 2023-03-08 00:00:00 Orders Only Doctor Unassigned, [place] [facility] 1.2.840.114 350.1.13.10 4.2.7.2.686 [id number] [facility] 2023-03-08 00:00:00 2023-03-08 00:00:00 Telephone Fredy Sotomayorha [facility] 1.2840.114 350.1.13.10 4.2.7.2.686 [id number] [facility] 2023-03-05 00:00:00 2023-03-05 00:00:00 Telephone Pura Maldonado [facility] 1.2840.114 350.1.13.10 4.2.7.2.686 [id number] [facility] 2023-02-23 09:30:00 2023-02-23 11:00:00 Seasonal Greenery Bundler Visit Therapist, Adc Respiratory Pura Maldonado [facility] 1..114 350.1.13.10 4.2.7.2.686 [id number] [facility] 2023-02-23 09:30:00 2023-02-23 09:30:00 Outpatient R [facility] [id number] [facility] 2023-02-23 09:30:00 2023-02-23 09:30:00 Outpatient R PURA MALDONADO SHIWAN [facility] [id number] [facility] 2023-02-23 00:00:00 2023-02-23 00:00:00 Orders Only Pura Maldonado [facility] 1.114 350.1.13.10 4.2.7.2.686 [id number] [facility] 2023-01-21 15:40:27 2023-01-21 15:40:27 Outpatient SFA [facility] [id number] Ambrose Encarnacion 2022-12-21 11:00:00 2022-12-21 11:31:23 Office Visit Pura Maldonado [facility] PROFESSIO [facility] 1..114 350.1.13.10 4.2.7.2.686 [id number] [facility] 2022-12-21 11:00:00 2022-12-21 11:31:23 Outpatient R PURA MALDONADO SHIWAN [facility] [id number] [facility] 2022-12-21 00:00:00 2022-12-21 00:00:00 Orders Only Doctor Unassigned, [place] [facility] 1.114 350.1.13.10 4.2.7.2.686 [id number] [facility] 2022-11-05 11:02:02 2022-11-05 11:02:02 Outpatient [facility] [id number] Ambrose Encarnacion 2022-07-22 08:10:39 2022-07-22 08:10:39 Outpatient [facility] [id number] Ambrose Encarnacion 2006-05-27 00:00:00 2006-05-27 13:57:52 Outpatient [facility] [id number] [facility] 2006-04-01 00:00:00 2006-04-01 13:14:08 Outpatient [facility] [id number] [facility] 2006-03-24 16:59:00 2006-03-29 11:45:00 Inpatient X ANALISA [facility] [id number] [facility] 2005-11-03 00:00:00 2005-11-03 12:25:06 Outpatient [facility] [id number] [facility] 2005-11-03 00:00:00 2005-11-03 10:12:21 Outpatient [facility] [id number] [facility] 2005-07-28 00:00:00 2005-07-28 13:41:43 Outpatient [facility] [id number] [facility] Results Test Description Test Time Test Comments Results Result Co mments Source [facility] W/O SPECIFIC [id number] 15:24:00* Test Item Value Reference Range Interpretation [...] 3257) Negative Negative - [facility]ati [facility] 14:47:18* Test Item Value Reference Range Interpretation Comme nts FVC Actual (test code = 3994) 2.49 L FEV1 Actual (test code = 3993) 1.80 L FEV1/FVC Actual (test code = 3995) 72 % [facility] Notes Date/Time Note Provider Source 2023-03-08 16:51:52 Formatting of this n ote might be different from the original. Received medical records from Darryl Rabago MD and uploaded in chart. External providers records [facility] 2023-03-05 15:17:00 Formatting of this n ote might be different from the original. Mailing results. Multiple attempts to inform of stable PFT results. Call back PRN. Skye Vazquez MA [facility] 2023-03-05 12:04:05 Formatting of this n ote might be different from the original. Inessa Qiu is a 62 year old female Pt is retuning a call for results. Please advise Pul function test [facility]
[2024-03-16] MEDS ORDERED: IPRATROPIUM BROM 0.5MG/2.5ML ONE ×2 (07:38→10:13)
[2024-03-16] MEDS ORDERED: ALBUTEROL 2.5 MG/3 ML NEB SOL ONE ×2 (07:38→10:12)
[2024-03-16 08:01] LABS: Absolute Basophils 0.1 K/uL (0-0.5); Absolute Eosinophils 0.1 K/uL (0-0.5); Absolute Lymphocytes (CBC) 2.3 K/uL (0.7-4.9); Absolute Monocytes 0.5 K/uL (0.1-1.3); Absolute Neutrophil 3.5 K/uL (1.8-8.0); Basophils % 0.9 % (0-1.3); Eosinophils % 0.8 % (0-4.4); Hematocrit 43.6 % (36.0-45.0); Hemoglobin 14.5 g/dL (12.0-15.0); Lymphocytes % 35.6 % (15.3-44.8); MCH 30.1 pg (27.0-35.0); MCHC 33.3 g/dL (32.0-36.0); MCV 90.2 fL (80-100); MPV 8.7 fL (7.6-11.3); Monocytes % 8.2 % (3.3-12.3); Neutrophils % 54.5 % (41.7-73.7); Platelets 199 thou/uL (152-406); RBC Red Blood Cell Count 4.83 M/uL (3.86-4.86)
[2024-03-16 08:27] LABS: ALT/SGPT 22 U/L (13-56); AST/SGOT 12 U/L (15-37); Albumin 3.8 g/dL (3.4-5.0); Albumin/Globulin Ratio 1.3 (1.1-1.8); Alkaline Phosphatase 78 U/L (45-117); Anion Gap 8.7 mEq/L (5.0-15.0); BUN Blood Urea Nitrogen 11 mg/dL (7-18); Bicarbonate 27 mEq/L (21-32); Bilirubin Total 0.4 mg/dL (0.2-1.0); Glomerular Filtration Rate 75 ml/min (=/>90); Glucose Level 101 mg/dL (74-106); Magnesium 2.4 mg/dL (1.6-2.4); NT PRO-BNP 21 pg/mL (<125); Potassium 3.7 mEq/L (3.5-5.1); Protein, Total 6.8 g/dL (6.4-8.2); Sodium Level 138 mEq/L (136-145); Troponin High Sensitivity 3.9 pg/mL (<58.9)
[2024-03-16 08:30] LABS: Bilirubin Direct < 0.2 mg/dL (0-0.2); Bilirubin Indirect, Calculated 0.2 mg/dL (0.2-0.8)
--- NOTE | 2024-03-16 08:32 | RAD REPORT ---
EXAM DESCRIPTION: RAD - Chest Single View - 03/16/2024 8:22 am CLINICAL HISTORY: COUGH Chest pain. COMPARISON: Chest Pa And Lat (2 Views) dated 11/24/2023; Chest Pa And Lat (2 Views) dated 10/06/2022; C hest Single View dated 06/30/2022; Chest Single View dated 03/27/2020 FINDINGS: Portable technique limits examination quality. The lungs are grossly clear. The heart is normal in size. No displaced fractures. IMPRESSION: No acute intrathoracic process suspected.
--- NOTE | 2024-03-16 10:48 | EDPHYS ---
Physician Documentation [facility] Name: Inessa Altman Age: 63 yrs Sex: Female : 1960 Arrival Date: 03/16/2024 Time: 07:22 Bed 4 Private MD: ED Physician Kush Negron HPI: 03/16 07:38 This 63 yrs old Female presents to ER via Ambulatory with complaints of Breathing rt Difficulty, Cough. 07:38 Patient has been on antibiotics, steroids for 1 week for cough, breathing difficulty. rt The patient states his breathing is worsened overnight, reports worsening paroxysms of coughing. Reports mild chest pain. Denies other acute complaints, symptoms are moderate in severity, no other aggravating or alleviating factors.. Historical: - Allergies: : Antihistamine; ll1 - PMHx: :26 Anxiety; Emphysema; Depression; Osteoporosis; COPD; Bipolar disorder; paranoid; ll1 - Immunization history:: Adult Immunizations up to date. - Infectious Disease History:: Denies. - Social history:: Smoking status: Patient reports the use of cigarette tobacco products, smokes one-half pack cigarettes per day. - Family history:: not pertinent. ROS: 07:38 Constitutional: Negative for fever, chills, and weight loss, Abdomen/GI: Negative for rt abdominal pain, nausea, vomiting, diarrhea, and constipation, MS/Extremity: Negative for injury and deformity, Skin: Negative for injury, rash, and discoloration, Neuro: Negative for headache, weakness, numbness, tingling, and seizure, 07:38 Cardiovascular: Positive for chest pain, Negative for edema, 07:38 Respiratory: Positive for cough, shortness of breath, Exam: 07:38 Constitutional: This is a well developed, well nourished patient who is awake, alert, rt and in no acute distress. Head/Face: Normocephalic, atraumatic. Chest/axilla: Normal chest wall appearance and motion. Nontender with no deformity. No lesions are appreciated. Cardiovascular: Regular rate and rhythm with a normal S1 and S2. No gallops, murmurs, or rubs. Normal PMI, no JVD. No pulse deficits. Abdomen/GI: Soft, non-tender, with normal bowel sounds. No distension or tympany. No guarding or rebound. No evidence of tenderness throughout. Skin: Warm, dry with normal turgor. Normal color with no rashes, no lesions, and no evidence of cellulitis. MS/ Extremity: Pulses equal, no cyanosis. Neurovascular intact. Full, normal range of motion. Neuro: Awake and alert, GCS 15, oriented to person, place, time, and situation. Cranial nerves II-XII grossly intact. Motor strength 5/5 in all extremities. Sensory grossly intact. Cerebellar exam normal. Normal gait. 07:38 Respiratory: Wheezes heard in all lung hall, moderate respiratory distress, 08:24 ECG was reviewed by the Attending Physician. rt Vital Signs: 07:30 BP 118 / 94; Pulse 81; Resp 26; Temp 97.3; Pulse Ox 99% ; Weight 68.04 kg; Height 5 ft. ll1 4 in. ; 07:50 BP 134 / 71; Pulse 104; Resp 26; Pulse Ox 95% on Nebulizer Mask; db 09:30 BP 122 / 74; Pulse 75; Resp 16; Pulse Ox 95% on R/A; db 10:07 BP 124 / 88; Pulse 72; Resp 16; Pulse Ox 95% on R/A; db 10:30 BP 113 / 70; Pulse 80; Resp 18; Pulse Ox 96% ; db 07:30 Body Mass Index 25.75 (68.04 kg, 162.56 cm) ll1 MDM: 07:28 Patient medically screened. rt 14:41 Differential diagnosis: Pneumonia, CHF, acute bronchitis. Data reviewed: vital signs, rt nurses notes, lab test result(s), EKG, radiologic studies. I considered the following discharge prescriptions or medication management in the emergency department Medications were administered in the Emergency Department. See MAR. Independent interpretation of the following test(s) in the Emergency Department X-Ray: My interpretation is No pneumonia seen on my interpretation of x-ray images. Test considered but Not performed: CT: Low suspicion for PE, CT angiogram not indicated. Care significantly affected by the following chronic conditions: Chronic Obstructive Pulmonary Disease. Counseling: I had a detailed discussion with the patient and/or guardian regarding the historical points, exam findings, and any diagnostic results supporting the discharge/admit diagnosis, lab results, radiology results, the need for outpatient follow up, to return to the emergency department if symptoms worsen or persist or if there are any questions or concerns that arise at home. Response to treatment: the patient's symptoms have markedly improved after treatment. 03/16 07:32 Order name: Basic Metabolic Panel; Complete Time: 08:32 rt 03/16 07:32 Order name: CBC with Diff; Complete Time: 08:32 rt 03/16 07:32 Order name: LFT's; Complete Time: 08:32 rt 03/16 07:32 Order name: Magnesium; Complete Time: 08:32 rt 03/16 07:32 Order name: NT PRO-BNP; Complete Time: 08:32 rt 03/16 07:32 Order name: Troponin HS; Complete Time: 08:32 rt 03/16 07:32 Order name: XRAY Chest (1 view) rt 03/16 07:32 Order name: EKG; Complete Time: 07:32 rt 03/16 07:32 Order name: Cardiac monitoring; Complete Time: 07:58 rt 03/16 07:32 Order name: EKG - Nurse/Tech; Complete Time: 07:58 rt 03/16 07:32 Order name: IV Saline Lock; Complete Time: 07:58 rt 03/16 07:32 Order name: Labs collected and sent; Complete Time: 07:58 rt 03/16 07:32 Order name: O2 Per Protocol; Complete Time: 07:58 rt 03/16 07:32 Order name: O2 Sat Monitoring; Complete Time: 07:58 rt EC:24 Rate is 69 beats/min. Rhythm is regular, Normal Sinus Rhythm with No ectopy. QRS [place] rt is Normal. AL interval is normal. QRS interval is normal. QT interval is normal. No Q waves. T waves are Normal. No ST changes noted. Interpreted by me. Administered Medications: 07:44 Drug: DuoNeb Nebulize (3:1) (2.5 mg - 0.5 mg) 3 ml Nebulizer once Route: Nebulizer; db 08:15 Follow up: Response: No adverse reaction db 10:24 Drug: DuoNeb Nebulize (3:1) (2.5 mg - 0.5 mg) 3 ml Nebulizer once Route: Nebulizer; aa5 11:02 Follow up: Response: No adverse reaction db Disposition Summary: 03/16/24 10:47 Discharge Ordered Notes: Location: Home rt Problem: new rt Symptoms: have improved rt Condition: Stable rt Diagnosis - Acute bronchitis, unspecified rt Followup: rt - With: Private Physician - When: 2 - 3 days - Reason: Discharge Instructions: - Discharge Summary Sheet rt - Acute Bronchitis, Adult rt Forms: - Medication Reconciliation Form rt - Antibiotic Education rt - Prescription Opioid Use rt - Patient Portal Instructions rt - Leadership Thank You Letter rt Prescriptions: - albuterol sulfate 2.5 mg /3 mL (0.083 %) Inhalation Solution for Nebulization - nebulize 3 milliliter INHALATION route every 4 hours as needed; 180 milliliter; rt Refills: 0, Product Selection Permitted Signatures: Dispatcher [employer] EDRenita Munguia RN RN aa5 Neva Leyva RN RN ll1 Radha Thakur RN RN db Kush Negron MD MD rt
--- NOTE | 2024-03-16 10:48 | ER ---
Nurse's Notes [facility] Name: Inessa Altman Age: 63 yrs Sex: Female : 1960 Arrival Date: 03/16/2024 Time: 07:22 Bed 4 Private MD: Diagnosis: Acute bronchitis, unspecified Presentation: 03/16 07:30 Chief complaint: Patient states: SOB and cough linger since being diagnosed with ll1 bronchitis, sinus infection, and UTI. No fever. Coronavirus screen: Client denies travel out of the [place] in the last 14 days. cough unrelated to allergies, difficulty breathing, shortness of breath, Client presents with at least one sign or symptom that may indicate coronavirus-19. Standard/surgical mask placed on the client. Ebola Screen: Patient denies travel to an Ebola-affected area in the 21 days before illness onset. Initial Sepsis Screen: Does the patient meet any 2 criteria? No. Patient's initial sepsis screen is negative. Does the patient have a suspected source of infection? No. Patient's initial sepsis screen is negative. Risk Assessment: Do you want to hurt yourself or someone else? Patient reports no desire to harm self or others. Onset of symptoms was March 02, 2024. 07:30 Method Of Arrival: Ambulatory ll1 07:30 Acuity: MINGO 3 ll1 Triage Assessment: 07:32 General: Appears uncomfortable, Behavior is calm, cooperative, appropriate for age. ll1 Respiratory: Reports shortness of breath cough that is. Historical: - Allergies: 07:26 Antihistamine; ll1 - PMHx: 07:26 Anxiety; Emphysema; Depression; Osteoporosis; COPD; Bipolar disorder; paranoid; ll1 - Immunization history:: Adult Immunizations up to date. - Infectious Disease History:: Denies. - Social history:: Smoking status: Patient reports the use of cigarette tobacco products, smokes one-half pack cigarettes per day. - Family history:: not pertinent. Screenin:00 [facility] ED Fall Risk Assessment (Adult) History of falling in the last 3 months, db including since admission No falls in past 3 months (0 pts) Confusion or Disorientation No (0 pts) Intoxicated or Sedated No (0 pts) Impaired Gait No (0 pts) Mobility Assist Device Used No (0 pt) Altered Elimination No (0 pt) Score/Fall Risk Level 0 - 2 = Low Risk Oriented to surroundings, Maintained a safe environment. Abuse screen: Denies threats or abuse. Denies injuries from another. Nutritional screening: No deficits noted. Tuberculosis screening: No symptoms or risk factors identified. Assessment: 07:44 Reassessment: Patient appears in no apparent distress at this time. Patient and/or db family updated on plan of care and expected duration. Pain level reassessed. Patient is alert, oriented x 3, equal unlabored respirations, skin warm/dry/pink. General: Appears in no apparent distress. uncomfortable, Behavior is calm, cooperative. Pain: Complains of pain in chest. Neuro: Level of Consciousness is awake, alert, obeys commands, Oriented to person, place, time, situation. Cardiovascular: Rhythm is sinus rhythm. Respiratory: Airway is patent Respiratory effort is even, labored, Respiratory pattern is regular, symmetrical, Breath sounds are coarse. 10:32 Reassessment: Patient appears in no apparent distress at this time. Patient and/or db family updated on plan of care and expected duration. Pain level reassessed. Patient is alert, oriented x 3, equal unlabored respirations, skin warm/dry/pink. Patient states feeling better. Patient states symptoms have improved. 11:01 Reassessment:. db Vital Signs: 07:30 BP 118 / 94; Pulse 81; Resp 26; Temp 97.3; Pulse Ox 99% ; Weight 68.04 kg; Height 5 ft. ll1 4 in. ; 07:50 BP 134 / 71; Pulse 104; Resp 26; Pulse Ox 95% on Nebulizer Mask; db 09:30 BP 122 / 74; Pulse 75; Resp 16; Pulse Ox 95% on R/A; db 10:07 BP 124 / 88; Pulse 72; Resp 16; Pulse Ox 95% on R/A; db 10:30 BP 113 / 70; Pulse 80; Resp 18; Pulse Ox 96% ; db 07:30 Body Mass Index 25.75 (68.04 kg, 162.56 cm) ll1 Vitals: 07:50 Cardiac Rhythm Assessment Regular Sinus rhythm. db ED Course: 07:25 Patient arrived in ED. ra3 07:26 Arm band placed on Patient placed in an exam room, on a stretcher. ll1 07:27 Kush Negron MD is Attending Physician. rt 07:31 Thakur, Radha, RN is Primary Nurse. db 07:32 Triage completed. ll1 07:44 Initial Neb Treatment Given as ordered Patient was instructed and evaluated on db procedure Patient tolerated procedure well without adverse effect. 07:54 Initial lab(s) drawn, by me, sent to lab. Inserted saline lock: 20 gauge in right db antecubital area, using aseptic technique. Blood collected. Flushed with 10 mL NS. 08:01 Patient has correct armband on for positive identification. Bed in low position. Call db light in reach. Side rails up X 1. Client placed on continuous cardiac and pulse oximetry monitoring. NIBP monitoring applied. conveyor monitor on. Pulse ox on. NIBP on. Door closed. Noise minimized. Lights dimmed. Warm blanket given. Pillow given. 08:24 XRAY Chest (1 view) In Process Unspecified. EDMS 11:01 Provided Education on: DISCHARGE AND FOLLOWUP. db 11:01 No provider procedures requiring assistance completed. IV discontinued, intact, db bleeding controlled, No redness/swelling at site. Administered Medications: 07:44 Drug: DuoNeb Nebulize (3:1) (2.5 mg - 0.5 mg) 3 ml Nebulizer once Route: Nebulizer; db 08:15 Follow up: Response: No adverse reaction db 10:24 Drug: DuoNeb Nebulize (3:1) (2.5 mg - 0.5 mg) 3 ml Nebulizer once Route: Nebulizer; aa5 11:02 Follow up: Response: No adverse reaction db Medication: 07:44 VIS not applicable for this client. db Outcome: 10:47 Discharge ordered by . rt 11:01 Discharged to home ambulatory, db 11:01 Condition: improved 11:01 Discharge instructions given to patient, Instructed on discharge instructions, follow up and referral plans. Prescriptions given X 2, 11:02 Patient left the ED. db Signatures: Dispatcher [employer] EDMS Renita Molina RN RN aa5 Neva Leyva RN RN ll1 Radha Thakur, RN RN db Kush Negron MD MD rt Ritu Cueva ra3 Corrections: (The following items were deleted from the chart) 07:34 07:30 BP 118 / 94; Pulse 81bpm; Resp 26bpm; Pulse Ox 99%; ll1 ll1
[2024-03-16 11:16] VITALS: TEMP 97.3
[2024-03-16 11:30] VITALS: BP 113/70; O2SAT 96
--- NOTE | 2024-03-17 14:41 | EKG ---
Test Date: 2024-03-16 Test Time: 07:47:40 Shipyard Helper: MIKE MEASUREMENT RESULTS: Intervals: Rate: 69 DE: 142 QRSD: 76 QT: 380 QTc: 407 Sieper: P: 71 DE: 142 QRS: 49 T: 48 INTERPRETIVE STATEMENTS: Normal sinus rhythm Normal ECG Compared to ECG 06/30/2022 14:38:26 No significant changes Electronically Signed On 03-17-24 14:39:09 CDT by Per Cooney
== END 2024-03-16 11:02 | disposition home or self-care (01) ==
LOC: ER 07:22
DX: J20.9 Acute bronchitis, unspecified (principal); J44.9 Chronic obstructive pulmonary disease, unspecified; F17.210 Nicotine dependence, cigarettes, uncomplicated
CPT/HCPCS: 93005; 85025; 80048; 36415; 83735; 80076; 84484; 83880; 71045; 94640; 99285; J7613 ×2; J7644 ×2